=== PATIENT | female | born 1985 | race Caucasian/White ===

== ENCOUNTER 2021-10-05 11:18 | Outpatient (CLI) | payer OTHER, SELFPAY ==
[2021-10-05 23:20] LABS: Chlamydia DNA Amplified* NOT DETECTED (No Detected); GC DNA Amplified* NOT DETECTED (No Detected)
== END 2021-10-05 11:19 | disposition home or self-care (01) ==
PROVIDERS: Visit Provider Registered Nurse
DX: N39.0 Urinary tract infection, site not specified (principal); R10.2 Pelvic and perineal pain
CPT/HCPCS: 87086; 87491; 87591

== ENCOUNTER 2021-10-05 11:57 | Outpatient (CLI) | payer OTHER, SELFPAY ==
--- NOTE | 2021-10-05 13:00 | CRLHL7_ITS ---
For Patients: As a result of the Century Cures Act, medical imaging exams and procedure reports are released immediately into your electronic medical record. You may view this report before your referring provider. If you have questions, please contact your health care provider. INDICATION: SUPERVISION OF NORMAL 1ST COMPARISON: None. TECHNIQUE: Real-time sanon-scale imaging of the pelvis was performed. FINDINGS: Intrauterine gestational sac is present with a mean sac diameter 1.5 cm. pole is present measuring 2.4 millimeters corresponding to a 5 week 5 day gestation and sonographic due date of 06/02/22. No heart tones. Corpus luteal left ovarian cyst. Normal right ovary. IMPRESSION: 2.4 millimeter pole without heart tones. When the crown-rump length is less than 7 millimeters this may simply represent a very early gestation and follow-up ultrasound in 2 weeks is recommended for further evaluation. Dictated by Wilmer Weir MD @ 10/05/2021 3:06:17 PM (Electronically Signed)
== END 2021-10-05 11:58 | disposition home or self-care (01) ==
PROVIDERS: Visit Provider Registered Nurse
DX: Z34.91 Encounter for supervision of normal pregnancy, unspecified, first trimester (principal); Z3A.01 Less than 8 weeks gestation of pregnancy
CPT/HCPCS: 76817

== ENCOUNTER 2021-10-17 12:09 | Emergency (ER) | payer OTHER, SELFPAY ==
[2021-10-17 12:22] VITALS: BP 128/78; PULSE 89; RESP 18; TEMP 36.7; O2SAT 97; BMI 25.8
--- NOTE | 2021-10-17 12:55 | ED_ITS ---
HPI - General Adult General Time Seen by Provider: 12:55 Date Seen: 10/17/21 Chief complaint: Nausea/Vomiting Stated complaint: 7 wks /vomiting/nausea Time Seen by Provider: 10/17/21 12:22 Source: patient and RN notes reviewed Mode of arrival: ambulatory Limitations: no limitations History of Present Illness HPI narrative: Patient is a 35-year-old female current [place] about 7 weeks with her 1st experienced seen nausea vomiting about 4:00 a.m. this morning. She awoke early this morning and did not feel well. She thought maybe she need ed a cracker. Soon issue put the cracker in her mouth she started vomiting. It was more bilious contents. She has no abdominal pain with it. She cannot eat or drink anything however. She did attend a [employer] last night and had some fruit and a taco. She felt fine until early this morning. She is not aware anybody else was ill. She has had no fevers but today does feel chilled. Denies any urinary symptoms. Some diarrhea yesterday per nurse's note, none today. No abnormal vaginal discharge or any vaginal bleeding. Again no pain associated with this. She has had some slight episodes of nausea that would resolve with eating earlier in this . She has not experienced anything of this nature yet during this . About 10 days ago she tested positive for COVID. Two days prior to testing in she had a headache and severe body aches. She then developed nasal congestion and some cough. All symptoms had resolved and then gone for about 4-5 days. She has never had any abdominal surgery. Onset (ago): hour(s) Related Data Home Medications Medication Instructions Recorded Confirmed calcium carbonate 600 mg calcium 600 mg PO QDAY 10/05/21 10/17/21 (1,500 mg) tablet (Calcium) docosahexaenoic acid 200 mg mg PO 10/05/21 10/05/21 capsule ( DHA) sertraline 100 mg tablet (Zoloft) 200 mg PO QDAY 10/05/21 10/17/21 Previous Rx's Medication Instructions Recorded nitrofurantoin 100 mg PO BID #10 caps 10/05/21 monohydrate/macrocrystals 100 mg capsule (Macrobid) cephalexin 500 mg capsule 500 mg PO TID #21 caps 10/17/21 ondansetron 4 mg disintegrating 4 mg PO Q6H PRN nausea and 10/17/21 tablet vomiting #30 tabs Allergies Allergy/AdvReac Type Severity Reaction Status Date / Time Penicillins Allergy Mild Rash Verified 10/17/21 12:21 Review of Systems Status of ROS: Reports: 10 or more systems reviewed and unremarkable except as noted in History and below [facility] Medical History (Updated 10/17/21 @ 15:15 by Lelia Ibrahim MD) No significant past medical history Surgical History (Updated 10/17/21 @ 12:41 by Lilo Gonzalez RN) No significant past surgical history Social History Smoking Status: Never smoker How often do you have a drink containing alcohol: never AUDIT-C Alcohol total score: 0 Non-prescribed substance use: denies use Exam Const: Vital Signs, click to edit/add: Vital Signs - 24 hr 10/17/21 12:22 Temperature 98.1 F Pulse Rate [Pulse Oximeter] 89 Respiratory Rate 18 Blood Pressure [Ri ght Upper Arm] 128/78 Pulse Oximetry 97 Oxygen Delivery Me thod Room Air Documenting provider has reviewed patient's vital signs: yes Common normals: no apparent distress, average body habitus, oriented x3, no limitations, healthy appearing and alert General appearance: cooperative, comfortable and well kempt HENMT: Common normals: normocephalic, head/scalp atraumatic, hearing grossly normal bilaterally, external ears normal, external nose normal, nasal mucous membranes and turbinates normal, moist oral mucous membranes, oropharynx normal and dentition normal Head and scalp: normocephalic and atraumatic Nose: external nose normal and nasal mucous membranes and turbinates normal External ear: external ears normal Eye: Common normals: PERRL, EOMs intact bilaterally, conjunctivae normal and no scleral icterus Conjunctiva: conjunctiva(e) normal Pupil: PERRL Neck & C-Spine: Common normals: full ROM, no lymphadenopathy, supple, no meningeal signs, no JVD and thyroid normal Thyroid: thyroid normal Resp: Common normals: normal respiratory effort, no retractions, no use of accessory muscles and clear to auscultation bilaterally Auscultation: clear to auscultation bilaterally Cardio: Common normals: no JVD, regular rate, regular rhythm, S1 normal heart sound, S2 normal heart sound, no gallops, no clicks, no murmurs and no rub Rate: regular rate Rhythm: regular rhythm Heart sounds: S1 normal and S2 normal GI: Common normals: Normal to inspection, nondistended, normoactive bowel sounds present, soft to palpation, non-tender, no hepatosplenomegaly, no masses and no bruits Palpation: soft and no hepatosplenomegaly Neuro: Common normals: oriented x3 Sensorium/orientation: alert Meningeal signs: no meningeal signs Psych: Appearance: well kempt Course Course Hospital Course: We are going to have an IV established, give her a L of fluids and 4 mg of IV Zofran for symptom control. Will get appropriate labs including urinalysis. Have discussed with patient that this could be a resurgence of late cycle of COV ID, could be morning sickness with , gastroenteritis. I am reassured that her abdomen is nontender and that she is having no vaginal symptoms. We will obtain our labs, CRC response to IV fluids and Zofran and guide therapy accordingly. She is currently stable. Reevaluation(s) Reevaluation #1: Patient does reportedly feel better. Have reviewed with her that there was bacteria in the urine and we will culture this. In I would recommend treating this until we await culture results. Will also send her with a prescription for Zofran so that she can tolerate orals at least. She reports that she has a followup with a Ob for her initial appointment next week which she should definitely keep. Time: 15:11 Vital Signs Vital signs: Initial Vital Signs Temperature 98.1 F 10/17/21 12:22 Temperature Source Temporal Artery Scan 10/17/21 12:22 Pulse Rate 89 10/17/21 12:22 Pulse Rhythm 10/17/21 12:22 Respiratory Rate 18 10/17/21 12:22 Blood Pressure 128/78 10/17/21 12:22 Blood Pressure Mean 94 10/17/21 12:22 Blood Pressure Position Supine 10/17/21 12:22 Pulse Oximetry 97 10/17/21 12:22 Oxygen Delivery Method 10/17/21 12:22 Vital Signs Temperature 98.1 F 10/17/21 12:22 Pulse Rate 89 10/17/21 12:22 Respiratory Rate 18 10/17/21 12:22 Blood Pressure 128/78 10/17/21 12:22 Pulse Oximetry 97 10/17/21 12:22 Oxygen Delivery Method 10/17/21 12:22 Temperature 98.1 F 10/17/21 12:22 Pulse Rate 89 10/17/21 12:22 Respiratory Rate 18 10/17/21 12:22 Blood Pressure 128/78 10/17/21 12:22 Pulse Oximetry 97 10/17/21 12:22 Oxygen Delivery Method 10/17/21 12:22 Medical Decision Making Lab Data Lab results reviewed: Yes I reviewed the patient's lab results Labs: Lab Results 10/17/21 10/17/21 10/17/21 Range/Units 13:14 13:40 13:40 WBC 11.78 H (4.50-11.00) K/uL RBC 4.75 (4.00-5.20) m/uL Hgb 14.0 (12.0-16.0) gm/dL Hct 40.9 (33.0-51.0) % MCV 86 (80-100) fL MCH 30 (26-34) pg MCHC 34 (32-36) gm/dL RDW Coeff of Valeria 12.2 (11.5-15.5) % Plt Count 212 (140-440) K/uL Neut % (Auto) 86.4 H (42.0-72.0) % Lymph % (Auto) 8.4 L (20-44) % [place] % (Auto) 4.2 (0.0-11.0) % Eos % (Auto) 0.3 (0.0-7.0) % Baso % (Auto) 0.1 (0.0-3.0) % Neut # (Auto) 10.20 H (1.7-7.0) K/uL Lymph # (Auto) 1.00 (0.90-2.90) K/uL [place] # (Auto) 0.50 (0.00-0.90) K/UL Eos # (Auto) 0.00 (0.00-0.50) K/uL Baso # (Auto) 0.00 (0.00-0.30) K/uL Abs Immat Gran (auto) 0.07 (0.00-0.30) K/uL Sodium 133 L (135-149) mmol/L Potassium 4.0 (3.6-5.1) mmol/L Chloride 106 (96-114) mmol/L Carbon Dioxide 21 (20-32) mmol/L BUN 8 (5-24) mg/dL Creatinine 0.4 L (0.5-1.5) mg/dL Estimated Creat Clear 203.20 Estimated GFR 131 ml/min Glucose 96 (60-115) mg/dL Lactate (0.5-1.9) mmol/L Calcium 9.2 (8.4-10.6) mg/dL Total Bilirubin 0.5 (0.1-1.5) mg/dL AST 33 (12-35) U/L ALT 54 H (4-35) U/L Alkaline Phosphatase 82 (40-150) U/L C-Reactive Protein < 0.5 L (0.5-1.0) mg/dL Total Protein 7.2 (6.0-8.3) g/dL Albumin 4.1 (3.3-5.0) g/dL Urine Color Yellow (Yellow) Urine Appearance Slightly Cloudy A (Clear) Urine pH 6.0 (5.0-8.5) Ur Specific [place] 1.025 (1.000-1.030) Urine Protein Negative (Negative) Urine Glucose (UA) Negative (Negative) Urine Ketones Negative (Negative) Urine Blood Trace-intact A (Negative) Urine Nitrite Negative (Negative) Urine Bilirubin Negative (Negative) Urine Urobilinogen 0.2 (0.2-1.0) Ur Leukocyte Esterase Negative (Negative) Urine RBC 2-5 A (0-2) Urine WBC 2-5 (0-5) Ur Squamous Epith Cells None (None-Few) Urine Bacteria Moderate A (None) 10/17/21 Range/Units 13:40 WBC (4.50-11.00) K/uL RBC (4.00-5.20) m/uL Hgb (12.0-16.0) gm/dL Hct (33.0-51.0) % MCV (80-100) fL MCH (26-34) pg MCHC (32-36) gm/dL RDW Coeff of Valeria (11.5-15.5) % Plt Count (140-440) K/uL Neut % (Auto) (42.0-72.0) % Lymph % (Auto) (20-44) % [place] % (Auto) (0.0-11.0) % Eos % (Auto) (0.0-7.0) % Baso % (Auto) (0.0-3.0) % Neut # (Auto) (1.7-7.0) K/uL Lymph # (Auto) (0.90-2.90) K/uL [place] # (Auto) (0.00-0.90) K/UL Eos # (Auto) (0.00-0.50) K/uL Baso # (Auto) (0.00-0.30) K/uL Abs Immat Gran (auto) (0.00-0.30) K/uL Sodium (135-149) mmol/L Potassium (3.6-5.1) mmol/L Chloride (96-114) mmol/L Carbon Dioxide (20-32) mmol/L BUN (5-24) mg/dL Creatinine (0.5-1.5) mg/dL Estimated Creat Clear Estimated GFR ml/min Glucose (60-115) mg/dL Lactate 0.9 (0.5-1.9) mmol/L Calcium (8.4-10.6) mg/dL Total Bilirubin (0.1-1.5) mg/dL AST (12-35) U/L ALT (4-35) U/L Alkaline Phosphatase (40-150) U/L C-Reactive Protein (0.5-1.0) mg/dL Total Protein (6.0-8.3) g/dL Albumin (3.3-5.0) g/dL Urine Color (Yellow) Urine Appearance (Clear) Urine pH (5.0-8.5) Ur Specific [place] (1.000-1.030) Urine Protein (Negative) Urine Glucose (UA) (Negative) Urine Ketones (Negative) Urine Blood (Negative) Urine Nitrite (Negative) Urine Bilirubin (Negative) Urine Urobilinogen (0.2-1.0) Ur Leukocyte Esterase (Negative) Urine RBC (0-2) Urine WBC (0-5) Ur Squamous Epith Cells (None-Few) Urine Bacteria (None) Critical Care Time Critical Care Time Critical Care Time: No Discharge Plan Discharge Clinical Impression: Bacteriuria, Nausea & vomiting Qualifiers: Vomiting type: unspecified Qualified Code(s): R11.2 - Nausea with vomiting, unspecified Condition: Stable Instructions: Acute Nausea and Vomiting (ED), Urinary Tract Infection in (ED), at 7 to 10 Weeks (ED) Additional Instructions: Can use Zofran per prescription to help minimize nausea and vomiting to allow for oral intake. It remains unclear at this time if urinary tract infection, with morning sickness or other possible etiology use like a gastroenteritis might be at play here. Time will help sort this out. I do recommend initiating Keflex to treat for the bacteriuria found on the urinalysis until we await the urine culture. Please keep your scheduled appointment next week for your initial OB. Otherwise, if you are worsening with ongoing nausea vomiting, unable to keep orals down despite use of Zofran, develop a fever, develops abdominal pain, do need to seek re-evaluation. Activity Level: Activity as Tolerated Discharge Diet: Regular Prescriptions: New ondansetron 4 mg tablet,disintegrating 4 mg PO Q6H PRN (Reason: nausea and vomiting) Qty: 30 0RF cephalexin 500 mg capsule 500 mg PO TID Qty: 21 0RF No Action DHA 200 mg capsule PO sertraline [Zoloft] 100 mg tablet 200 mg PO QDAY calcium carbonate [Calcium 600] 600 mg calcium (1,500 mg) tablet 600 mg PO QDAY nitrofurantoin monohyd/m-cryst [Macrobid] 100 mg capsule 100 mg PO BID Qty: 10 0RF Rx Instructions: must administer with a meal/food Follow Up/Referrals: Provider,Not a Local [Primary Care Provider] - Stand Alone Forms: [employer] Info Instructions
[2021-10-17] MEDS: ONDANSETRON 2 MG/ML inj 4 MG IVP (13:39)
[2021-10-17] MEDS: 0.9 % SODIUM CHLORIDE 500 ML 500 ML 1000 ML IV ×2 (13:40→14:06)
[2021-10-17 13:50] LABS: Lactate* 0.9 mmol/L (0.5-1.9)
[2021-10-17 13:51] LABS: Basophils Percent Auto 0.1 % (0.0-3.0); Eosinophils Percent Auto 0.3 % (0.0-7.0); Hematocrit 40.9 % (33.0-51.0); Immature Granulocytes Abs Auto 0.07 K/uL (0.00-0.30); Lymphocytes Percent Auto 8.4 % (20-44); Mean Corpuscular HGB Conc 34 gm/dL (32-36); Mean Corpuscular Hemoglobin 30 pg (26-34); Mean Corpuscular Volume 86 fL (80-100); Monocytes Percent Auto 4.2 % (0.0-11.0); Neutrophils Percent Auto 86.4 % (42.0-72.0); Platelet Count* 212 K/uL (140-440); RDW Coefficient of Variation % 12.2 % (11.5-15.5); Red Blood Count 4.75 m/uL (4.00-5.20); White Blood Count* 11.78 K/uL (4.50-11.00)
[2021-10-17 14:17] LABS: Albumin* 4.1 g/dL (3.3-5.0); Chloride* 106 mmol/L (96-114)
[2021-10-17 14:18] LABS: Sodium* 133 mmol/L (135-149)
[2021-10-17 14:20] LABS: Bilirubin Total* 0.5 mg/dL (0.1-1.5); Creatinine* 0.4 mg/dL (0.5-1.5); Estimated Glomerular Filt Rate 131 ml/min
[2021-10-17 14:21] LABS: Alanine Aminotransferase* 54 U/L (4-35); Alkaline Phosphatase* 82 U/L (40-150); Aspartate Amino Transferase* 33 U/L (12-35); Blood Urea Nitrogen* 8 mg/dL (5-24); Calcium* 9.2 mg/dL (8.4-10.6); Carbon Dioxide* 21 mmol/L (20-32); Glucose* 96 mg/dL (60-115); Total Protein* 7.2 g/dL (6.0-8.3)
[2021-10-17 14:28] LABS: C Reactive Protein* < 0.5 mg/dL (0.5-1.0)
[2021-10-17 14:30] LABS: Slide Review Reflex No
[2021-10-17 14:45] LABS: Appearance Urine Slightly Cloudy (Clear); Bilirubin Urine Negative (Negative); Blood Urine Trace-intact (Negative); Color Urine Yellow (Yellow); Glucose Urine Negative (Negative); Ketones Urine Negative (Negative); Leukocyte Esterase Urine Negative (Negative); Nitrite Urine Negative (Negative); Protein Urine Negative (Negative); Specific Gravity Urine 1.025 (1.000-1.030); Urobilinogen Urine 0.2 (0.2-1.0)
[2021-10-17 14:54] LABS: Bacteria Urine Moderate
== END 2021-10-17 15:26 | disposition home or self-care (01) ==
PROVIDERS: Emergency Provider Family Medicine
DX: R82.71 Bacteriuria (principal); Z3A.01 Less than 8 weeks gestation of pregnancy
CPT/HCPCS: 36415; 80053; 81001; 83605; 85025; 86140; 87086; 96374; 99284; J2405; J7120

== ENCOUNTER 2021-10-23 12:00 | Outpatient (CLI) | payer OTHER, SELFPAY ==
--- NOTE | 2021-10-23 12:49 | CRLHL7_ITS ---
For Patients: As a result of the Century Cures Act, medical imaging exams and procedure reports are released immediately into your electronic medical record. You may view this report before your referring provider. If you have questions, please contact your health care provider. INDICATION: First trimester scan, establish dates. COMPARISON: 10/05/2021 TECHNIQUE: Real-time sanon-scale imaging of the pelvis was performed. FINDINGS: Sonographic imaging demonstrates a single living intrauterine gestation. The embryo demonstrates a regular cardiac rate measuring 171 beats per minute. The embryo`s crown-rump length measurement of 1.9 cm corresponds to a gestational age of 8 weeks 3 days with a sonographic due date of 06/01/2022. There is a normal-appearing yolk sac. There are no gross abnormalities noted within the embryo at this early state of development. The gestational sac has a normal appearance. There is no evidence of a perigestational hemorrhage. The amount of fluid within the sac appears appropriate for gestational age. The cervix is closed. The myometrium appears normal. The ovaries are of normal size. Corpus luteal cyst left ovary. There are no suspicious fluid collections noted in the cul-de-sac. IMPRESSION: Normal first trimester OB ultrasound exam. Gestational age calculated at 8 weeks 3 days with a sonographic due date of 06/01/2022. Dictated by Wilmer Weir MD @ 10/24/2021 8:48:42 AM (Electronically Signed)
== END 2021-10-23 12:01 | disposition home or self-care (01) ==
LOC: US 10-26 11:18
PROVIDERS: Visit Provider Registered Nurse
DX: Z34.91 Encounter for supervision of normal pregnancy, unspecified, first trimester (principal); Z3A.08 8 weeks gestation of pregnancy
CPT/HCPCS: 76817

== ENCOUNTER 2021-10-23 14:04 | Outpatient (CLI) | payer OTHER, SELFPAY ==
[2021-10-23 17:12] LABS: Hepatitis B Surface Antigen* Negative (Negative)
[2021-10-23 17:22] LABS: HIV 1/2/P24 Combo Screen* Negative (Negative)
[2021-10-23 17:30] LABS: Hepatitis C Virus Antibody* Negative (Negative)
[2021-10-25 18:20] LABS: Rubella Antibody IgG 17.9 IU/mL
[2021-10-26 00:37] LABS: Rapid Plasma Reagin (RPR) Non Reactive (Non Reactive)
== END 2021-10-23 14:05 | disposition home or self-care (01) ==
LOC: NFLDREF 14:09
PROVIDERS: Visit Provider Registered Nurse
DX: Z34.91 Encounter for supervision of normal pregnancy, unspecified, first trimester (principal)
CPT/HCPCS: 86592; 86703; 86762; 86803; 86850; 86900; 86901; 87086; 87340

== ENCOUNTER 2021-11-20 13:20 | Outpatient (CLI) | payer OTHER, SELFPAY ==
[2021-11-20 16:08] LABS: Albumin* 3.7 g/dL (3.3-5.0)
[2021-11-20 16:11] LABS: Aspartate Amino Transferase* 26 U/L (12-35); Bilirubin Direct* 0.2 mg/dL (0.0-0.5); Bilirubin Total* 0.2 mg/dL (0.1-1.5); Total Protein* 6.5 g/dL (6.0-8.3)
[2021-11-20 16:12] LABS: Alanine Aminotransferase* 26 U/L (4-35); Alkaline Phosphatase* 81 U/L (40-150)
== END 2021-11-20 13:21 | disposition home or self-care (01) ==
LOC: NFLDREF 13:22
PROVIDERS: Visit Provider Obstetrics & Gynecology
DX: O09.511 Supervision of elderly primigravida, first trimester (principal); R74.01 Elevation of levels of liver transaminase levels
CPT/HCPCS: 80076

== ENCOUNTER 2022-01-23 12:23 | Outpatient (CLI) | payer OTHER, SELFPAY | END 2022-01-23 12:24 | disposition home or self-care (01) | PROVIDERS: Visit Provider Pediatrics Neonatal-Perinatal Medicine | DX: O09.522 Supervision of elderly multigravida, second trimester (principal); Z3A.21 21 weeks gestation of pregnancy | CPT/HCPCS: 76811 ==

== ENCOUNTER 2022-03-19 15:17 | Outpatient (CLI) | payer OTHER, SELFPAY ==
[2022-03-21 16:10] LABS: Rapid Plasma Reagin (RPR) Non Reactive (Non Reactive)
== END 2022-03-19 15:18 | disposition home or self-care (01) ==
PROVIDERS: Visit Provider Obstetrics & Gynecology
DX: Z34.93 Encounter for supervision of normal pregnancy, unspecified, third trimester (principal); Z3A.29 29 weeks gestation of pregnancy
CPT/HCPCS: 86592

== ENCOUNTER 2022-04-02 12:58 | Outpatient (CLI) | payer OTHER, SELFPAY ==
--- NOTE | 2022-04-02 13:00 | CRLHL7_ITS ---
For Patients: As a result of the Century Cures Act, medical imaging exams and procedure reports are released immediately into your electronic medical record. You may view this report before your referring provider. If you have questions, please contact your health care provider. INDICATION: Third trimester scan, evaluate growth. COVID in COMPARISON: 10/23/2021 TECHNIQUE: Real time sanon scale imaging of the fetus was performed. FINDINGS: Sonographic imaging demonstrates a single living intrauterine gestation. Fetus demonstrates a regular cardiac rate of 141 beats per minute. Fetus has a vertex position. The placenta lies posteriorly. Amniotic fluid volume appears normal and there is a single deepest vertical pocket: 3.5 cm. The estimated weight is 1800gm which lies at the 54th %. BPD 20th percentile. HC 22nd percentile. AC 78th percentile. FL 30th percentile. The HC/AC ratio measures 1.02 range (0.96-1.16). IMPRESSION: Sonographic gestational age 31 weeks 2 days and sonographic due date 06/02/2022. Good correlation with dates. Estimated weight 54th percentile. Abdominal circumference 78th percentile. Dictated by Wilmer Weir MD @ 04/03/2022 12:55:24 PM (Electronically Signed)
== END 2022-04-02 12:59 | disposition home or self-care (01) ==
LOC: US 12:59
PROVIDERS: PCP Obstetrics & Gynecology; Visit Provider Obstetrics & Gynecology
DX: O98.513 Other viral diseases complicating pregnancy, third trimester (principal); U07.1 COVID-19; Z3A.31 31 weeks gestation of pregnancy
CPT/HCPCS: 76816; 87086

== ENCOUNTER 2022-04-16 12:56 | Outpatient (CLI) | payer OTHER, SELFPAY ==
[2022-04-16 17:54] LABS: Alanine Aminotransferase* 19 U/L (4-35); Aspartate Amino Transferase* 32 U/L (12-35); Blood Urea Nitrogen* 13 mg/dL (5-24); Estimated Glomerular Filt Rate 74 ml/min
[2022-04-16 17:55] LABS: Total Protein Urine 15 mg/dL
[2022-04-16 17:57] LABS: Creatinine Urine 59.8 mg/dL
== END 2022-04-16 12:57 | disposition home or self-care (01) ==
PROVIDERS: PCP Obstetrics & Gynecology; Visit Provider Obstetrics & Gynecology
DX: O16.3 Unspecified maternal hypertension, third trimester (principal); Z3A.33 33 weeks gestation of pregnancy
CPT/HCPCS: 82565; 82570; 84156; 84450; 84460; 84520

== ENCOUNTER 2022-04-19 07:18 | Outpatient (CLI) | payer OTHER, SELFPAY ==
--- NOTE | 2022-04-19 07:15 | CRLHL7_ITS ---
For Patients: As a result of the Century Cures Act, medical imaging exams and procedure reports are released immediately into your electronic medical record. You may view this report before your referring provider. If you have questions, please contact your health care provider. INDICATION: GESTATIONAL HYPERTENSION COMPARISON: 04/02/2022 TECHNIQUE: Real time sanon scale imaging of the fetus was performed. Without non-stress testing. FINDINGS: Sonographic imaging demonstrates a single living intrauterine gestation. Fetus demonstrates a regular cardiac rate of 171 beats per minute. Fetus has a vertex position. The amniotic fluid volume appears normal and there is a single deepest pocket measurement of 5.4 cm. The fetus was active and demonstrated normal breathing movements. There was normal flexion and extension of the trunk and extremities. IMPRESSION: Normal biophysical profile score of 8 out of 8. Dictated by Wilmer Weir MD @ 04/22/2022 10:22:36 AM (Electronically Signed)
== END 2022-04-19 07:19 | disposition home or self-care (01) ==
LOC: US 07:19
PROVIDERS: PCP Obstetrics & Gynecology; Visit Provider Obstetrics & Gynecology
DX: O13.9 Gestational [pregnancy-induced] hypertension without significant proteinuria, unspecified trimester (principal)
CPT/HCPCS: 76819

== ENCOUNTER 2022-04-23 10:16 | Outpatient (CLI) | payer OTHER, SELFPAY ==
[2022-04-23 11:20] LABS: Blood Urea Nitrogen* 12 mg/dL (5-24)
[2022-04-23 11:21] LABS: Alanine Aminotransferase* 19 U/L (4-35); Aspartate Amino Transferase* 25 U/L (12-35); Creatinine* 0.7 mg/dL (0.5-1.5); Estimated Glomerular Filt Rate 114 ml/min
[2022-04-23 11:52] LABS: Creatinine Urine 63.6 mg/dL; Total Protein Urine 21 mg/dL
[2022-04-24 13:52] LABS: Strep B DNA Probe NEGATIVE (Negative)
[2022-04-25 07:48] LABS: Strep B Pen/Amox Allergy Yes
== END 2022-04-23 10:17 | disposition home or self-care (01) ==
PROVIDERS: PCP Obstetrics & Gynecology; Visit Provider Obstetrics & Gynecology
DX: O13.3 Gestational [pregnancy-induced] hypertension without significant proteinuria, third trimester (principal); Z3A.34 34 weeks gestation of pregnancy
CPT/HCPCS: 82565; 82570; 84156; 84450; 84460; 84520; 87081; 87653

== ENCOUNTER 2022-04-26 14:02 | Outpatient (CLI) | payer OTHER, SELFPAY ==
--- NOTE | 2022-04-26 14:00 | CRLHL7_ITS ---
For Patients: As a result of the Century Cures Act, medical imaging exams and procedure reports are released immediately into your electronic medical record. You may view this report before your referring provider. If you have questions, please contact your health care provider. INDICATION: Gestational hypertension. COMPARISON: OB ultrasound 04/19/2022. TECHNIQUE: Real time sanon scale imaging of the fetus was performed without non-stress testing. FINDINGS: Sonographic imaging demonstrates a single living intrauterine gestation. The fetus demonstrates a regular cardiac rate of 150 beats per minute. The fetus has a cephalic orientation. The placenta lies posteriorly. Amniotic fluid volume appears normal with single deepest pocket measuring 5.3 cm (2/2). The fetus was active (2/2). There was normal flexion and extension of the trunk and extremities (2/2). The fetus demonstrated normal breathing movements (2/2). IMPRESSION: Normal biophysical profile score 8 out of 8. Dictated by Jessi Peña MD @ 04/27/2022 1:06:56 AM (Electronically Signed)
== END 2022-04-26 14:03 | disposition home or self-care (01) ==
LOC: US 14:03
PROVIDERS: PCP Obstetrics & Gynecology; Visit Provider Obstetrics & Gynecology
DX: O13.9 Gestational [pregnancy-induced] hypertension without significant proteinuria, unspecified trimester (principal)
CPT/HCPCS: 76819

== ENCOUNTER 2022-04-30 14:04 | Outpatient (CLI) | payer OTHER, SELFPAY ==
[2022-04-30 17:35] LABS: Creatinine* 0.7 mg/dL (0.5-1.5); Estimated Glomerular Filt Rate 114 ml/min
[2022-04-30 17:36] LABS: Alanine Aminotransferase* 18 U/L (4-35); Aspartate Amino Transferase* 24 U/L (12-35); Blood Urea Nitrogen* 14 mg/dL (5-24)
== END 2022-04-30 14:05 | disposition home or self-care (01) ==
PROVIDERS: PCP Obstetrics & Gynecology; Visit Provider Obstetrics & Gynecology
DX: O14.93 Unspecified pre-eclampsia, third trimester (principal); O09.513 Supervision of elderly primigravida, third trimester; Z3A.35 35 weeks gestation of pregnancy
CPT/HCPCS: 82565; 84450; 84460; 84520

== ENCOUNTER 2022-05-03 10:12 | Outpatient (CLI) | payer OTHER, SELFPAY ==
--- NOTE | 2022-05-03 10:15 | CRLHL7_ITS ---
For Patients: As a result of the Century Cures Act, medical imaging exams and procedure reports are released immediately into your electronic medical record. You may view this report before your referring provider. If you have questions, please contact your health care provider. INDICATION: GESTATIONAL HYPERTENSION TECHNIQUE: Real time sanon scale imaging of the fetus was performed. COMPARISON: 04/26/2022 FINDINGS: Sonographic imaging demonstrates a single living intrauterine gestation. Fetus demonstrates a regular cardiac rate of 144 beats per minute. Fetus has a vertex position. The placenta lies posteriorly. Amniotic fluid volume appears normal and there is a single deepest pocket of 4.4 cm. The estimated weight is 2800gm which lies at the 59th %. On the prior OB ultrasound dated 04/02/2022 the estimated weight was at the 54th percentile. BPD 29th percentile. HC 13 percent. AC 92nd percentile. FL 14th percentile. The fetus was active and demonstrated normal breathing movements. There was normal flexion and extension of the trunk and extremities. IMPRESSION: Normal biophysical profile score 8/8. Sonographic gestational age 35 weeks 3 days and sonographic due date 06/04/2022. Good correlation with dates. Normal interval growth. Estimated weight 59th percentile. Abdominal circumference 92nd percentile. Dictated by Wilmer Weir MD @ 05/03/2022 10:57:11 AM (Electronically Signed)
== END 2022-05-03 10:13 | disposition home or self-care (01) ==
LOC: US 10:13
PROVIDERS: PCP Obstetrics & Gynecology; Visit Provider Obstetrics & Gynecology
DX: O13.3 Gestational [pregnancy-induced] hypertension without significant proteinuria, third trimester (principal); Z3A.35 35 weeks gestation of pregnancy
CPT/HCPCS: 76816; 76819

== ENCOUNTER 2022-05-07 09:01 | Outpatient (CLI) | payer OTHER, SELFPAY ==
[2022-05-07 10:54] LABS: Alanine Aminotransferase* 16 U/L (4-35); Aspartate Amino Transferase* 23 U/L (12-35); Blood Urea Nitrogen* 12 mg/dL (5-24); Creatinine* 0.7 mg/dL (0.5-1.5); Estimated Glomerular Filt Rate 114 ml/min
== END 2022-05-07 09:02 | disposition home or self-care (01) ==
PROVIDERS: PCP Obstetrics & Gynecology; Visit Provider Obstetrics & Gynecology
DX: O14.90 Unspecified pre-eclampsia, unspecified trimester (principal)
CPT/HCPCS: 82565; 84450; 84460; 84520

== ENCOUNTER 2022-05-10 09:21 | Outpatient (CLI) | payer OTHER, SELFPAY ==
--- NOTE | 2022-05-10 09:15 | CRLHL7_ITS ---
For Patients: As a result of the Cures Act, medical imaging exams and procedure reports are released immediately into your electronic medical record. You may view this report before your referring provider. If you have questions, please contact your health care provider. OB ULTRASOUND CLINICAL HISTORY: Gestational hypertension. LMP: 08/27/2021. SHERRIE by LMP: 06/03/2022. GA: 36 w, 4 d. FINDINGS: Cervix: Not visualized. Positioning: Vertex. Amniotic Fluid: 6.5 cm SDP (N: Increase 2 x 1 cm) BIOPHYSICAL PROFILE 8 ??? Total Score 2 ??? Gross Body Movements 2- Tone 2- Respiratory Activity 2- Amniotic Fluid SDP (N: Increase 2 x 1 cm) Placenta: TA. Placenta Position: Posterior. Right wall. Heart Rate: 134 bpm. IMPRESSION: Biophysical profile score 8/8. Consuelo Duffy M.D. Diagnostic/Breast Radiologist [email or web address] CANDIDA/[email or web address] [email or web address]/Dictated by: Consuelo Duffy MD @ 05/10/2022 10:39:00 AM (Electronically Signed)
== END 2022-05-10 09:22 | disposition home or self-care (01) ==
LOC: US 09:22
PROVIDERS: PCP Obstetrics & Gynecology; Visit Provider Obstetrics & Gynecology
DX: O13.9 Gestational [pregnancy-induced] hypertension without significant proteinuria, unspecified trimester (principal)
CPT/HCPCS: 76819

== ENCOUNTER 2022-05-12 16:10 | Inpatient (IN) | payer OTHER, SELFPAY ==
[2022-05-12 16:25] VITALS: BMI 34.4
[2022-05-12 16:33] VITALS: BP 158/102; PULSE 96; TEMP 36.8
[2022-05-12 16:34] VITALS: PULSE 99; O2SAT 97
[2022-05-12 16:50] VITALS: BP 138/86; PULSE 90
[2022-05-12 17:24] LABS: Hematocrit 39.1 % (33.0-51.0); Hemoglobin* 13.1 gm/dL (12.0-16.0); Mean Corpuscular HGB Conc 34 gm/dL (32-36); Mean Corpuscular Hemoglobin 28 pg (26-34); Mean Corpuscular Volume 84 fL (80-100); Platelet Count* 205 K/uL (140-440); Red Blood Count 4.63 m/uL (4.00-5.20); White Blood Count* 9.06 K/uL (4.50-11.00)
[2022-05-12] MEDS: miSOPROStoL 25 MCG/0.25 TABLET VAGINAL ×3 (17:31→23:27)
[2022-05-12 17:34] LABS: Slide Review Reflex No
[2022-05-12 17:34] LABS: SARS PCR* Negative SARS-CoV-2 (Negative)
[2022-05-12 17:40] LABS: Aspartate Amino Transferase* 25 U/L (12-35); Creatinine* 0.8 mg/dL (0.5-1.5); Est. Creatinine Clearance* 100.62; Estimated Glomerular Filt Rate 97 ml/min
[2022-05-12 17:41] LABS: Alanine Aminotransferase* 19 U/L (4-35); Blood Urea Nitrogen* 19 mg/dL (5-24); Magnesium* 2.1 mg/dL (1.5-2.6)
--- NOTE | 2022-05-12 17:53 | P.LDBA_ITS ---
Subjective History of Present Illness Time Seen by Provider: 17:53 Date Seen: 05/12/22 Narrative: Janice is a 36yo is being admitted to Labor and Delivery for cervical ripening followed by induction of labor due to preeclampsia without severe features. Her full history and physical was completed by Dr. Tonya Staples on 04/23/2022. Please see this for details. She denies headaches, visual changes, N&V, mid-epigastric/RUQ pain. She has mild BLE swelling in her feet. OB - Problem Based A/P Additional Plan (1) Preeclampsia: Status: Acute Plan 1. Cervical ripening with vaginal cytotec 25mcg PV Q3hr: 5 doses maximum. 2. Pitocin per labor protocol in the Am 3. Serum preeclampsia labs ordered now, repeat in the AM 4. GBS negative. 5. Dr. Tonya Staples with assumed care on 05/13/22.2 6. Blood type O+ 7. Preeclampsia labs on admission: * Hgb 13.1, plts 205, INR 0.9, fibrinogen 508 (H), BUN 19, Creat 0.8, AST 25, ALT 19. OB Exam Physical Exam Vital signs: Pulse BP Pulse Ox 90 138/86 97 05/12/22 16:50 05/12/22 16:50 05/12/22 16:34 Narrative: General: Pleasant, , well-groomed woman in no acute distress. Vital signs: see above. Chest: CTA bilaterally Heart: RRR without gallop, rub or murmur. Abdomen: Gravid, NT/ND, normal bowel sounds throughout EFM: Baseline: 130's, (+) accels, (-) decels, moderate variability, reactive. Ca tegory 1. TOCO: rare contractions. SVE (per nursing): 1/70%/-3/posterior/soft. salazar: 5. Extremities: No pain. Mild BLE in the feet. Neurologic: Normal DTR's at bilateral patella: 2+/2, equal, no clonus
[2022-05-12 18:01] LABS: Fibrinogen* 508 mg/dL (200-450); INR 0.95 (0.91-1.10); Prothrombin Time 13.3 Seconds
[2022-05-12 20:21] VITALS: BP 141/87; PULSE 77; RESP 16; TEMP 36.7
[2022-05-12 20:22] VITALS: BP 141/90; PULSE 77
[2022-05-12 23:15] VITALS: BP 144/84; PULSE 77; RESP 16; TEMP 36.7
[2022-05-12] MEDS: MORPHINE 10 MG/ML inj IM (23:20)
[2022-05-12] MEDS: hydrOXYzine pamoate 25 MG CAPSULE 100 MG PO (23:21)
[2022-05-13] VITALS (67 sets, daily range): BP systolic 121–162; BP diastolic 73–101; PULSE 76–120; RESP 16–20; TEMP 36.4–37.3; O2SAT 93–100
[2022-05-13 06:19] LABS: Hematocrit 40.8 % (33.0-51.0); Hemoglobin* 13.7 gm/dL (12.0-16.0); Mean Corpuscular HGB Conc 34 gm/dL (32-36); Mean Corpuscular Hemoglobin 28 pg (26-34); Mean Corpuscular Volume 85 fL (80-100); Platelet Count* 199 K/uL (140-440); Red Blood Count 4.82 m/uL (4.00-5.20); White Blood Count* 13.07 K/uL (4.50-11.00)
[2022-05-13 06:24] LABS: Slide Review Reflex Yes
[2022-05-13 06:35] LABS: Aspartate Amino Transferase* 25 U/L (12-35); Creatinine* 0.8 mg/dL (0.5-1.5); Est. Creatinine Clearance* 100.62; Estimated Glomerular Filt Rate 97 ml/min; Magnesium* 1.9 mg/dL (1.5-2.6)
[2022-05-13 06:36] LABS: Alanine Aminotransferase* 19 U/L (4-35); Blood Urea Nitrogen* 18 mg/dL (5-24)
[2022-05-13 06:51] LABS: INR 0.92 (0.91-1.10); Prothrombin Time 12.9 Seconds
[2022-05-13 06:53] LABS: Fibrinogen* 527 mg/dL (200-450)
[2022-05-13] MEDS: miSOPROStoL 25 MCG/0.25 TABLET VAGINAL (07:34)
[2022-05-13] MEDS: LACTATED RINGERS 1000 ML 1,000 ML 125 ML IV (11:59)
[2022-05-13] MEDS: OXYTOCIN 30 unit/500 ML in NS 30 UNIT/500 ML BAG IVPB (12:01)
--- NOTE | 2022-05-13 14:37 | P.OBPN_ITS ---
Subjective Time Seen by Provider: 14:30 Date Seen: 05/13/22 Narrative: Janice has had 4 doses of vaginal misoprostol for cervical ripening, the last around 7 AM. She then had pitocin for IOL beginning late this AM. She is feeling contractions, but they are not registering on toco. Objective Vital Signs: Last Vital Signs Temp 98.8 F 05/13/22 12:10 Pulse 81 05/13/22 14:11 Resp 16 05/13/22 12:10 BP 126/76 05/13/22 14:11 Pulse Ox 96 05/13/22 13:55 Pelvic Exam Dilation (cm): 3 Effacement (%): 90 Station: 0 Comments: Anterior, soft. AROM for clear fluid Assessment Assessment: early labor Amniotic Membrane Status: AROM Status: Category l Heart Rate Baseline: 150 Digital [employer] Manager Variability: Moderate (6-25) Monitor Accelerations: Absent Monitor Decelerations: None Labor Progress: Favorable cervix after vaginal misoprostol for cervical ripening. AROM At 2:30 PM. Maternal Status: Preeclampsia without severe features. BPs intermittently elevated, but not to severe range. Plan Plan: Continue pitocin augmentation. Continuous monitoring.
[2022-05-13] MEDS: LACTATED RINGERS 1000 ML 1,000 ML 122 ML IV (15:35)
[2022-05-13 15:38] LABS: Slide Review Acceptable Review (Acceptable)
[2022-05-13] MEDS: ROPIVACAINE 0.2% 100 ml 100 ML 12 MG EPIDURAL (15:52)
[2022-05-13] MEDS: LIDOCAINE 2% (PF) 5 ML VIAL EPIDURAL (15:54)
--- NOTE | 2022-05-13 15:57 | PM.ANBPRC ---
[facility] Medical History (Updated 04/23/22 @ 14:33 by Tonya Staples MD) History of recurrent ear infection Migraines Surgical History (Updated 04/23/22 @ 10:30 by Tonya Staples MD) H/O wisdom tooth extraction Family History (Updated 04/23/22 @ 10:31 by Tonya Staples MD) Mother Thyroid disease Sister Multiple sclerosis Father Carcinoma of biliary tract Social History (Updated 04/23/22 @ 10:35 by Tonya Staples MD) Narrative: Lives in [place] with . Works for [employer] from home. No tob / ETOH / ilicits Smoking Status: Never smoker How often do you have a drink containing alcohol: never AUDIT-C Alcohol total score: 0 Non-prescribed substance use: denies use Little interest or pleasure in doing things: not at all Feeling down, depressed, or hopeless: not at all Meds Home Medications and Allergies Home Medications Medication Instructions Recorded Confirmed Type calcium carbonate 600 mg calcium 600 mg PO QDAY 10/05/21 05/12/22 History (1,500 mg) tablet (Calcium) docosahexaenoic acid 200 mg mg PO 10/05/21 05/10/22 History capsule ( DHA) sertraline 100 mg tablet (Zoloft) 200 mg PO QDAY 10/05/21 05/12/22 History aspirin 81 mg capsule 81 mg PO QDAY 04/23/22 05/12/22 History Allergies Allergy/AdvReac Type Severity Reaction Status Date / Time Penicillins Allergy Mild Rash Verified 05/10/22 10:37 Results Labs Labs: Laboratory Results - last 24 hr 05/12/22 05/12/22 05/12/22 16:41 17:18 17:18 WBC 9.06 RBC 4.63 Hgb 13.1 Hct 39.1 MCV 84 MCH 28 MCHC 34 Plt Count 205 Diff Slide Review INR 0.95 Fibrinogen 508 H BUN Creatinine Estimated Creat Clear Estimated GFR Magnesium AST ALT SARS-CoV-2 (PCR) Negative SARS-CoV-2 05/12/22 05/12/22 05/13/22 17:18 17:18 06:05 WBC RBC Hgb Hct MCV MCH MCHC Plt Count Diff Slide Review INR Fibrinogen BUN 19 Creatinine 0.8 Estimated Creat Clear 100.62 Estimated GFR 97 Magnesium 2.1 1.9 AST 25 ALT 19 SARS-CoV-2 (PCR) 05/13/22 05/13/22 05/13/22 06:05 06:05 06:05 WBC 13.07 H RBC 4.82 Hgb 13.7 Hct 40.8 MCV 85 MCH 28 MCHC 34 Plt Count 199 Diff Slide Review Acceptable Review INR 0.92 Fibrinogen 527 H BUN 18 Creatinine 0.8 Estimated Creat Clear 100.62 Estimated GFR 97 Magnesium AST 25 ALT 19 SARS-CoV-2 (PCR) Vital Signs Vital Signs: Last Vital Signs Temp 98.8 F 05/13/22 12:10 Pulse 88 05/13/22 15:57 Resp 16 05/13/22 12:10 BP 131/83 05/13/22 15:57 Pulse Ox 98 05/13/22 15:53 Weight: 104.644 kg Height: 175.26 cm Anesthesia Procedures Epidural Insertion Patient Location: OB Start Time: 15:15 Stop Time: 16:00 Start Date: 05/13/22 Stop Date: 05/13/22 Reason for Block: primary anesthetic Patient Position: sitting Performed By: Kevon Dockery Preanesthetic Checklist: IV checked, risks and benefits discussed, surgical consent, monitors and equipment checked, pre-op evaluation, timeout performed and anesthesia consent Prep: chlorhexidine gluconate Monitoring: blood pressure monitoring, library monitor, continuous pulse oximetry and heart rate Approach: midline Vertebral Space: lumbar (1-5) Needle Type: Tuohy needle Injection Technique: continuous catheter (catheter) Needle gauge: 17 Needle Length (cm): 10 cm Needle Insertion Depth (cm): 6 Catheter Gauge: 19 Catheter Type: multi-orifice Catheter at skin depth (cm): 12 Test Dose Result: negative and lidocaine 1.5% with epinephrine 1 to 200,000 Events: other (1st attempt catheter kinked, pulled catheter tip intact. 2nd epidural placed without complication)
[2022-05-13 17:33] LABS: Basophils Absolute Auto 0.01 K/uL (0.00-0.30); Basophils Percent Auto 0.1 % (0.0-3.0); Eosinophils Absolute Auto 0.04 K/uL (0.00-0.50); Eosinophils Percent Auto 0.4 % (0.0-7.0); Hematocrit 41.1 % (33.0-51.0); Hemoglobin* 13.5 gm/dL (12.0-16.0); Immature Granulocytes Abs Auto 0.03 K/uL (0.00-0.30); Immature Granulocytes Pct Auto 0.3 %; Lymphocytes Percent Auto 12.4 % (20-44); Mean Corpuscular HGB Conc 33 gm/dL (32-36); Mean Corpuscular Hemoglobin 28 pg (26-34); Mean Corpuscular Volume 85 fL (80-100); Monocytes Percent Auto 8.6 % (0.0-11.0); Neutrophils Percent Auto 78.2 % (42.0-72.0); Platelet Count* 176 K/uL (140-440); RDW Coefficient of Variation % 13.1 % (11.5-15.5); Red Blood Count 4.82 m/uL (4.00-5.20); White Blood Count* 9.82 K/uL (4.50-11.00)
[2022-05-13 17:42] LABS: Slide Review Reflex No
[2022-05-13 18:42] LABS: Fibrinogen* 466 mg/dL (200-450)
[2022-05-13] MEDS: LIDOCAINE 1 % PF 30 ML INJECTION (20:17)
--- NOTE | 2022-05-13 20:34 | P.OBPRC_ITS ---
Procedure Delivery date: 05/13/22 Procedure Done: [employer] Procedure Details: The patient is a 36 year-old G 1 P 0 woman admitted on 05/12/2022 at 36 Weeks, 6 Days gestation for induction of labor for preeclampsia without severe features.? Cervical exam on admission was 1 cm/70 % effaced/-3 station with membranes intact in vertex presentation.? heart rate demonstrated baseline 130 bpm with moderate variability, positive accelerations, no decelerations; a category 1 tracing.? She had 4 doses of vaginal Cytotec for cervical ripening, then had Pitocin for augmentation of labor. AROM occurred at 2:32 p.m. with clear fluid. ? Labor Analgesia:? Epidural ? Pitocin:? Yes ? Labor onset:? 4:58 p.m. ? Complete:? 7:10 p.m. ? Pushing:? 7:10 p.m. ? heart tones during second stage were notable for baseline around 170. ? At 8:12 p.m. a viable female infant delivered in vertex LARS presentation over intact perineum. The infant's head delivered but the anterior shoulder could not be delivered with gentle guidance of the head downward. Shoulder dystocia was diagnosed. Following maneuvers were attempted: * Miracle maneuver, unsuccessful * Suprapubic pressure, unsuccessful * Infant was successfully delivered by guidance of the posterior shoulder. Total time elapsed between delivery of head and anterior shoulder was approximately 35 seconds. was placed briefly on maternal abdomen while cord was doubly clamped and cut.? Nose and mouth were bulb suctioned.? was passed off to attending nurses and brought to the warmer. Infant weight 6 lb, 8 oz. 7 at 1 minute and 8 at 5 minutes.? Shoulder dystocia: Yes, as described above.? Nuchal cord: No. ? Attempts to deliver placenta with gentle traction on the cord led to near avulsion of the cord. At this time, the placental disc was in the patient's vagina. The disc was grasped and removed with gentle traction. It was found to be complete with a three-vessel cord. ? Mother and infant were stable after delivery. ? Lacerations:? 1st degree, repaired with 2 interrupted [id number]-ibwab sutures of 3-0 Vicryl after infiltration with a small amount of 1% lidocaine. ? Blood loss: 125 mL. Blood loss measurement type: QBL ? Sponge and needles counts are correct.
[2022-05-13] MEDS: IBUPROFEN 600 MG TABLET PO (23:28)
[2022-05-14] VITALS (9 sets, daily range): BP systolic 126–157; BP diastolic 84–98; PULSE 79–91; RESP 16–20; TEMP 36.4–36.8; O2SAT 94–96
[2022-05-14 05:51] LABS: Hematocrit 39.2 % (33.0-51.0); Hemoglobin* 12.8 gm/dL (12.0-16.0); Mean Corpuscular HGB Conc 33 gm/dL (32-36); Mean Corpuscular Hemoglobin 28 pg (26-34); Mean Corpuscular Volume 85 fL (80-100); Platelet Count* 177 K/uL (140-440); Red Blood Count 4.61 m/uL (4.00-5.20); White Blood Count* 13.43 K/uL (4.50-11.00)
[2022-05-14 05:52] LABS: Slide Review Reflex No
[2022-05-14 05:57] LABS: Aspartate Amino Transferase* 28 U/L (12-35); Blood Urea Nitrogen* 17 mg/dL (5-24); Creatinine* 0.7 mg/dL (0.5-1.5); Estimated Glomerular Filt Rate 114 ml/min
--- NOTE | 2022-05-14 08:06 | PM.OBPNVD1 ---
OB - PN:Subj Subjective Date Seen: 05/14/22 Patient comments OB post-: no complaints and pain well controlled [place] status: feeding status: exclusively Narrative: Janice is a 36yo G1 now P1 at 37.0 weeks gestation s/p uncomplicated vaginal delivery. The patient feels well.? The pain is well controlled with current medications.? She has no new complaints.? Urinary output is adequate and she is voiding without difficulty.? Has a good appetite, is tolerating a general diet, is passing flatus, and has not yet had a bowel movement.? Has small amount of rubra lochia.? She is ambulating well. She is and reports it is going well.?She does desire to continue to work on her skills and see when able. OB - PN: Obj Exam Physical Exam: Vital signs: Temp Pulse Resp BP Pulse Ox O2 Del Method 98.2 F 79 20 136/84 94 05/14/22 03:00 05/14/22 03:00 05/14/22 03:00 05/14/22 03:00 05/14/22 03:00 05/14/22 03:00 Narrative: GENERAL APPEARANCE:? normal affect, alert, no distress? MOOD:? appropriate? CHEST:? clear to auscultation? HEART:? regular rate and rhythm? ABDOMEN:? soft, non-tender the uterine fundus is At Umbilicus, Midline and is appropriate for the stage of recovery.? PERINEUM:? mild edema of the perineum, there is a Perineal Laceration,? 1st degree that is healing well.? EXTREMITIES:? normal and trace edema? OB - PN: Obj Data Labs Labs: Laboratory Results - last 24 hr 05/13/22 05/13/22 05/13/22 06:05 17:26 18:22 WBC 9.82 RBC 4.82 Hgb 13.5 Hct 41.1 MCV 85 MCH 28 MCHC 33 RDW Coeff of Valeria 13.1 Plt Count 176 Neut % (Auto) 78.2 H Lymph % (Auto) 12.4 L [place] % (Auto) 8.6 Eos % (Auto) 0.4 Baso % (Auto) 0.1 Neut # (Auto) 7.70 H Lymph # (Auto) 1.20 [place] # (Auto) 0.80 Eos # (Auto) 0.04 Baso # (Auto) 0.01 Diff Slide Review Acceptable Review Fibrinogen 466 H BUN Creatinine Estimated Creat Clear Estimated GFR AST Blood Type Antibody Screen 05/13/22 05/14/22 05/14/22 18:22 05:25 05:25 WBC 13.43 H RBC 4.61 Hgb 12.8 Hct 39.2 MCV 85 MCH 28 MCHC 33 RDW Coeff of Valeria Plt Count 177 Neut % (Auto) Lymph % (Auto) [place] % (Auto) Eos % (Auto) Baso % (Auto) Neut # (Auto) Lymph # (Auto) [place] # (Auto) Eos # (Auto) Baso # (Auto) Diff Slide Review Fibrinogen BUN 17 Creatinine 0.7 Estimated Creat Clear 115.00 Estimated GFR 114 AST 28 Blood Type O Positive Antibody Screen NEGATIVE OB - PN: A/P Vaginal Delivery Assessment and Plan (1) care and examination immediately after delivery: Status: Acute (2) Preeclampsia: Status: Inactive (3) Lactating mother: Status: Acute Plan Continue to monitor blood pressures. May see as desired. Anticipate discharge tomorrow. Plan day: 1 Plan: routine care
[2022-05-14 08:09] LABS: Alanine Aminotransferase* 18 U/L (4-35)
[2022-05-14] MEDS: DOCUSATE SODIUM 100 MG CAPSULE PO (09:53)
[2022-05-14] MEDS: IBUPROFEN 600 MG TABLET PO (11:35)
[2022-05-14] MEDS: NIFEdipine 30 MG TAB.ER.24 PO ×2 (12:29→17:25)
[2022-05-14] MEDS: ACETAMINOPHEN 500 MG TABLET 1000 MG PO (16:39)
[2022-05-15] MEDS: ACETAMINOPHEN 500 MG TABLET 1000 MG PO ×2 (01:40→08:16)
[2022-05-15 04:00] VITALS: BP 142/91; PULSE 87; RESP 16; TEMP 36.6; O2SAT 95
[2022-05-15] MEDS: IBUPROFEN 600 MG TABLET PO (04:08)
[2022-05-15 08:03] VITALS: BP 127/85; PULSE 87; RESP 16; TEMP 36.4; O2SAT 95
[2022-05-15] MEDS: DOCUSATE SODIUM 100 MG CAPSULE PO (08:16)
--- NOTE | 2022-05-15 09:08 | PM.OBDSVD1 ---
DS: Providers Provider Date Seen: 05/15/22 Date of admission: 05/12/22 16:10 Primary care physician: Tonya Staples MD Admitting Clinician: Tonya Staples. Attending Physician on discharge: SHAILESH Mcgrath with supervision by Nati Ivey CNM Date of Discharge: 05/15/22 DS: Diagnosis Discharge Diagnosis (1) care and examination immediately after delivery: Status: Acute (2) Lactating mother: Status: Acute (3) Pre-eclampsia affecting puerperium: Status: Acute Exam Narrative: Exam Narrative: GENERAL APPEARANCE:? normal affect, alert, no distress? MOOD:? appropriate? CHEST:? clear to auscultation? HEART:? regular rate and rhythm? ABDOMEN:? soft, non-tender the uterine fundus is 2cm below Umbilicus, Midline and is appropriate for the stage of recovery.? PERINEUM:? mild edema of the perineum, there is a Perineal Laceration,? first degree that is healing well.? EXTREMITIES:? normal and no edema? Const: Vital Signs, click to edit/add: Vital Signs - 24 hr 05/14/22 11:45 05/14/22 11:30 05/14/22 16:39 Temperature 98.2 F 97.6 F Pulse Rate [Pulse Oximeter] 82 Respiratory Rate 16 Blood Pressure [Ri ght Arm] 142/96 H 157/97 H Pulse Oximetry 94 Oxygen Delivery Me thod Room Air 05/14/22 16:15 05/14/22 19:29 05/14/22 23:52 Temperature 97.6 F 97.7 F 97.8 F Pulse Rate [Pulse Oximeter] 91 88 87 Respiratory Rate 16 16 16 Blood Pressure [Ri ght Arm] 150/93 H 147/87 H 126/86 Pulse Oximetry 95 96 94 Oxygen Delivery Me thod Room Air Room Air Room Air 05/15/22 04:00 05/15/22 08:03 Temperature 97.9 F 97.6 F Pulse Rate [Pulse Oximeter] 87 87 Respiratory Rate 16 16 Blood Pressure [Ri ght Arm] 142/91 H 127/85 Pulse Oximetry 95 95 Oxygen Delivery Me thod Room Air Room Air Documenting provider has reviewed patient's vital signs: yes OB - DS: Summary Hospital Course Hospital Course: Janice is a 36yo at 37.0 weeks gestation s/p uncomplicated vaginal delivery, she was induced for a diagnosis of preeclampsia without severe features. The patient feels well.? The pain is well controlled with current medications.? She has no new complaints.? Urinary output is adequate and she is voiding without difficulty.? Has a good appetite, is tolerating a general diet, is passing flatus, and has had a bowel movement.? Has small amount of rubra lochia.? She is ambulating well. She is and reports it is going well.?She does desire to continue to work on her skills and see today. Her blood pressures have been elevated since delivery and she was started on 30 mg of Nifedipine XR on 05/14/22. Peripartum Data Infant delivery method: Vaginal Laceration description: Perineal - 1st Degree complications: none [place] Infant Gender: Female Discharge Plan: Home Status at Discharge Functional status at discharge: independent ambulation Overall status at discharge: patient is progressing back to baseline Time Spent with Patient Time attestation: Total time spent providing and/or coordinating discharge services: Time spent: Less than 30 minutes Discharge Plan Discharge Disposition: Home, Self-Care Date of Admission: 05/12/22 16:10 Attending Provider on Discharge: Nati Ivey Primary Care Provider: Tonya Staples Condition: Stable Anticipated Discharge Date/Time: 05/15/22 12:00 Discharge Medications: New nifedipine 30 mg Tablet Extended Release 24hr 30 mg PO DAILY Qty: 30 0RF acetaminophen 500 mg Tablet 1,000 mg PO Q6H PRNQty: 0 0RF docusate sodium 100 mg Capsule 100 mg PO DAILY Qty: 90 0RF ibuprofen 600 mg Tablet 600 mg PO Q6H PRNQty: 0 0RF Continued DHA 200 mg capsule 200 mg PO DAILY sertraline [Zoloft] 100 mg tablet 200 mg PO QDAY calcium carbonate [Calcium 600] 600 mg calcium (1,500 mg) tablet 600 mg PO QDAY fluticasone propionate 50 mcg/actuation spray,suspension 2 spray intranasal QDAY PRN (Reason: allergy symptoms) Qty: 16 3RF Rx Instructions: administer into each nostril Discontinued aspirin 81 mg capsule 81 mg PO QDAY Discharge Orders: Discharge Order (Routine); Ordered 05/15/22 Ordered By: Nati Ivey Patient Education: OB Over the Counter Medication Information, OB Vaginal/Breast Feeding Additional Instructions: Discharge instructions were reviewed with the patient including signs and symptoms of infection and home going medications Nothing vaginally for 6 weeks: no tampons or intercourse Off Work or School for 6 weeks Follow [facility] for a BP check in?one week Call with BP greater than or equal to 160/110 2-week visit: discuss infant feeding concerns, review control options and screen for anxiety/depression. 6-week visit for an annual exam. consultation services are available to all mothers and babies for the first year after delivery.? To make an appointment, please call [phone]. Activity Level: Activity as Tolerated Discharge Diet: Regular Follow Up Appointments: [facility] [Provider Group] Forms: [employer] Info Instructions
[2022-05-15 12:04] VITALS: BP 144/93; PULSE 85; RESP 16; TEMP 36.6; O2SAT 95
[2022-05-15] MEDS: NIFEdipine 30 MG TAB.ER.24 PO (12:13)
== END 2022-05-15 13:00 | disposition home or self-care (01) | DRG 807 ==
PROVIDERS: Obstetrics & Gynecology; Admitting Provider Obstetrics & Gynecology; PCP Obstetrics & Gynecology; Visit Provider Obstetrics & Gynecology
DX: O14.04 Mild to moderate pre-eclampsia, complicating childbirth (principal); Z37.0 Single live birth; O66.0 Obstructed labor due to shoulder dystocia; Z3A.36 36 weeks gestation of pregnancy; O70.0 First degree perineal laceration during delivery
CPT/HCPCS: 01967; 36415; 59200; 82565; 83735; 84450; 84460; 84520; 85025; 85027; 85384; 85610; 86850; 86900; 86901; 87635; 88307; A9270; J2001; J2270; J2370; J2795; J7120

== ENCOUNTER 2022-05-21 11:19 | Outpatient (CLI) | payer OTHER, SELFPAY | END 2022-05-21 11:20 | disposition home or self-care (01) | PROVIDERS: PCP Obstetrics & Gynecology; Referring Provider Obstetrics & Gynecology; Visit Provider Obstetrics & Gynecology | DX: R30.0 Dysuria (principal) | CPT/HCPCS: 87086 ==

== ENCOUNTER 2024-03-24 13:55 | Outpatient (CLI) | payer OTHER, SELFPAY ==
--- NOTE | 2024-03-24 14:00 | CRLHL7_ITS ---
For Patients: As a result of the Century Cures Act, medical imaging exams and procedure reports are released immediately into your electronic medical record. You may view this report before your referring provider. If you have questions, please contact your health care provider. INDICATION: First trimester dating and viability. TECHNIQUE: Ultrasound OB pelvis transabdominal and transvaginal. Real-time sanon-scale imaging of the pelvis was performed. COMPARISON: None. FINDINGS: Intrauterine gestation: Single. heart activity (bpm): 176. [place]-rump length: 2.2 cm. Gestational sac: 2.8 cm Estimated ultrasound age: 8 weeks 6 days SHERRIE by ultrasound: 10/28/2024. Yolk sac: Normal measuring 0.4 cm. Perigestational hemorrhage: Small subchorionic hemorrhage measuring 1.5 x 1 x 0.9 cm. Ovaries and adnexa: Right ovary measures 4 x 2.4 x 3.2 cm with corpus luteal cyst. Left ovary measures 3.2 x 3 x 2.5 cm. Suspicious pelvic fluid collections: None Small amount fluid within the right uterus versus fibroid measuring 1.2 x 1 x 1.1 cm. IMPRESSION: 1. Single viable intrauterine with estimated ultrasound age of 8 weeks 6 days and SHERRIE by ultrasound of 10/28/2024. 2. Small subchorionic hemorrhage measuring up to 1.5 cm. 3. Small fibroid versus fluid in the right uterus measuring up to 1.2 cm Dictated by Merlene Rogers MD @ 03/26/2024 9:29:04 AM (Electronically Signed)
== END 2024-03-24 13:56 | disposition home or self-care (01) ==
LOC: US 13:56
PROVIDERS: Visit Provider Registered Nurse
DX: Z34.91 Encounter for supervision of normal pregnancy, unspecified, first trimester (principal); O20.9 Hemorrhage in early pregnancy, unspecified; Z3A.08 8 weeks gestation of pregnancy
CPT/HCPCS: 76817; 82565; 82570; 83021; 84156; 84450; 84460; 84520; 86592; 86703; 86704; 86706; 86762; 86787; 86803; 86850; 86900; 86901; 87086; 87340; 87491; 87591

== ENCOUNTER 2024-05-21 08:43 | Outpatient (CLI) | payer OTHER, SELFPAY | END 2024-05-21 08:44 | disposition home or self-care (01) | LOC: NFLDREF 05-23 16:47 | PROVIDERS: Visit Provider Registered Nurse | DX: Z34.90 Encounter for supervision of normal pregnancy, unspecified, unspecified trimester (principal); Z87.59 Personal history of other complications of pregnancy, childbirth and the puerperium | CPT/HCPCS: 82570; 84156 ==

== ENCOUNTER 2024-06-02 09:58 | Outpatient (CLI) | payer OTHER, SELFPAY | END 2024-06-02 09:59 | disposition home or self-care (01) | LOC: US 09:59 | PROVIDERS: Visit Provider Obstetrics & Gynecology | DX: O09.512 Supervision of elderly primigravida, second trimester (principal); Z3A.18 18 weeks gestation of pregnancy | CPT/HCPCS: 76811 ==

== ENCOUNTER 2024-06-16 09:51 | Outpatient (CLI) | payer OTHER, SELFPAY | END 2024-06-16 09:52 | disposition home or self-care (01) | LOC: FRMREF 09:53 | PROVIDERS: Visit Provider Obstetrics & Gynecology | DX: O26.892 Other specified pregnancy related conditions, second trimester (principal); R30.0 Dysuria; N89.8 Other specified noninflammatory disorders of vagina; Z3A.20 20 weeks gestation of pregnancy | CPT/HCPCS: 87086 ==

== ENCOUNTER 2024-06-17 11:00 | Outpatient (CLI) | payer OTHER, SELFPAY ==
[2024-06-17 11:18] LABS: Clue Cells No Clue Cells Seen (None Seen); Trichomonas No Trichomonas Seen (None Seen); Yeast No Yeast Seen (None Seen)
== END 2024-06-17 11:01 | disposition home or self-care (01) ==
LOC: NFLDREF 11:01
PROVIDERS: Visit Provider Obstetrics & Gynecology
DX: N89.8 Other specified noninflammatory disorders of vagina (principal)
CPT/HCPCS: 87210

== ENCOUNTER 2024-08-12 08:00 | Outpatient (CLI) | payer OTHER, SELFPAY | END 2024-08-12 08:01 | disposition home or self-care (01) | LOC: NFLDREF 08-15 12:18 | PROVIDERS: Visit Provider Obstetrics & Gynecology | DX: Z34.83 Encounter for supervision of other normal pregnancy, third trimester (principal) | CPT/HCPCS: 86592 ==

== ENCOUNTER 2024-08-12 08:04 | Outpatient (CLI) | payer OTHER, SELFPAY ==
--- NOTE | 2024-08-12 08:15 | CRLHL7_ITS ---
For Patients: As a result of the Cures Act, medical imaging exams and procedure reports are released immediately into your electronic medical record. You may view this report before your referring provider. If you have questions, please contact your health care provider. OBSTETRICAL ULTRASOUND ??? FOLLOW-UP, 08/12/2024 INDICATION: Preexisting hypertension. Follow-up growth. CLINICAL HISTORY: LMP: 01/25/2024 SHERRIE by LMP: 10/31/2024 Gestational Age: 28 weeks 4 days COMPARISON: 06/02/2024, 03/24/2024. TECHNIQUE: Real-time sanon-scale transabdominal imaging of the fetus was performed. FINDINGS: Fetus: Single Cervix: Not visualized positioning: Vertex Amniotic Fluid: 3.6 cm SDP Placenta technique: Transabdominal Placenta position: Posterior, left wall heart rate: 131 bpm BIOMETRY: BPD: 7.2 cm, 28 weeks 6 days, 45.8% HC: 26.8 cm, 29 weeks 1 day, 35.6% AC: 24.7 cm, 29 weeks 0 days, 54.6% FL: 5.2 cm, 27 weeks 5 days, 14.0% FL/AC Ratio: 21.0% HC/AC ratio: 1.1 EFW: 1244 grams; 2 lbs. 12 oz. age by this ultrasound: 28 weeks 5 days SHERRIE by this ultrasound: 10/30/2024 Percentile by SHERRIE: 35.7% IMPRESSION: 1. Sonographic gestational age 28 weeks 5 days and sonographic due date 10/30/2024. Good correlation with dates. Normal interval growth. 2. Estimated weight is 36th percentile. Abdominal circumference is 55th percentile. WILMER EVANS M.D. Diagnostic Radiologist [email or web address] Transcribed: 9:[address]/Dictated by: Wilmer Evans MD @ 08/12/2024 9:05:00 AM (Electronically Signed)
== END 2024-08-12 08:05 | disposition home or self-care (01) ==
LOC: US 08:05
PROVIDERS: Visit Provider Obstetrics & Gynecology
DX: O10.913 Unspecified pre-existing hypertension complicating pregnancy, third trimester (principal); Z3A.28 28 weeks gestation of pregnancy
CPT/HCPCS: 76816

== ENCOUNTER 2024-08-31 09:40 | Outpatient (CLI) | payer OTHER, SELFPAY | END 2024-08-31 09:41 | disposition home or self-care (01) | LOC: NFLDREF 09-03 09:54 | PROVIDERS: Visit Provider Internal Medicine Nephrology | DX: O10.919 Unspecified pre-existing hypertension complicating pregnancy, unspecified trimester (principal); R80.9 Proteinuria, unspecified | CPT/HCPCS: 82570; 84156; 84450; 84460 ==

== ENCOUNTER 2024-09-09 12:05 | Outpatient (CLI) | payer OTHER, SELFPAY ==
--- NOTE | 2024-09-09 12:15 | CRLHL7_ITS ---
For Patients: As a result of the Century Cures Act, medical imaging exams and procedure reports are released immediately into your electronic medical record. You may view this report before your referring provider. If you have questions, please contact your health care provider. OB ULTRASOUND BIOPHYSICAL PROFILE, CLINICAL HISTORY: Pre-existing HTN. COMPARISON: 08/12/2024, 06/02/2024. TECHNIQUE: Real time sanon scale imaging of the fetus was performed. Transabdominal imaging performed. FINDINGS: LMP: 01/25/2024. SHERRIE by LMP: 10/31/2024. GA: 32 weeks 4 days. Cervix: Not visualized. Positioning: Vertex. Amniotic Fluid: 4.4 cm SDP. BIOPHYSICAL PROFILE: Gross Body Movements: 2 Tone: 2 Respiratory Activity: 2 Amniotic Fluid SDP: 2 Total Score: 8/8 Placenta: Technique: TA. Placenta Position: Posterior, left wall. Dopplers: Heart Rate: 137 bpm. BIOMETRY: BPD: 7.9 cm, 31 weeks 6 days. 23% HC: 29.6 cm, 32 weeks 5 days. 19% AC: 28.6 cm, 32 weeks 4 days. 50% FL: 6.0 cm, 31 weeks 1 day. 50% FL/AC Ratio: 20.90% HC/AC Ratio: 1.04. EFW: 1902 g, 4 lb 3 oz. age by this US: 32 weeks 1 day. SHERRIE by this US: 11/03/2024. Percentile by SHERRIE: 26% IMPRESSION: 1. Sonographic gestational age 32 weeks 1 day and sonographic due date 11/03/2024. Good correlation with dates. Normal interval growth. 2. Estimated weight 26th percentile. Abdominal circumference 50th percentile. 3. Normal biophysical profile score 10/22. Wilmer Weir M.D. Diagnostic Radiologist [email or web address] Transcribed: 5:18 pm DW/Dictated by: Wilmer Weir MD @ 09/09/2024 3:57:00 PM (Electronically Signed)
--- OUTSIDE RECORDS SUMMARY | 2024-09-10 01:03 | XMS_ITS | Clinical Summary ---
Author Organization [facility] Address [address] [place] [id number] Care Team Providers Care Train Driver Name Role Phone Josette Eagle Primary Care Provider [phone] Allergies Active Allergy Reactions Criticality Noted Date Comments Penicillins Rash 05/07/2021 Penicillins *Unknown,Rash,*Unkno wn - Follow up needed Low 03/31/2008 Medications methylergonovine (METHERGINE) 0.2 mg tablet Take 1 tablet by mouth every 4 hours after to control bleeding. 4 tablet 10/26/2015 11:39 AM CDT 6 Active azithromycin (ZITHROMAX) 250 mg tablet Take as directed. 6 tablet 10/26/2015 11:39 AM CDT 6 Active misoprostol (CYTOTEC) 200 mcg tablet Bring to office to use as directed. 6 tablet 10/26/2015 11:39 AM CDT 6 Active propranolol ER (INDERAL LA) 120 mg Cs24 Sustained-Release capsule 2 Active sertraline (ZOLOFT) 100 mg tablet 2 Active omeprazole (PRILOSEC) 20 mg Delayed-Release capsule Take 20 mg by mouth once daily. Two caps QD Active famotidine (Pepcid) 20 mg tablet Take 20 mg by mouth 2 times daily. Active ondansetron (ZOFRAN ODT) 4 mg disintegrating tabletIndications:E pigastric abdominal pain Place 1 Tablet (4 mg) on the tongue every 8 hours if needed for Nausea/Vomit ing. 10 Tablet 2 Active Social History Tobacco Use Types Packs/Day Years Used Date Smoking Tobacco: Former Smokeless Tobacco: Never Alcohol Use Standard Drinks/Week Comments Yes 0 (1 standard drink = 0.6 oz pur e alcohol) Socially Comments No Sex and Gender Information Value Date Recorded Sex Assigned at Not on file Legal Sex Female 11:06 AM CDT Gender Identity Not on file Sexual Orientation Not on file Obstetrics History Last Filed Vital Signs Vital Sign Reading Time Taken Comments Blood Pressure 134/86 01/23/2022 6:50 PM FIREARMS INSPECTOR Pulse 96 01/23/2022 6:50 PM FIREARMS INSPECTOR Temperature 37 C (98.6 F) 01/23/2022 6:50 PM FIREARMS INSPECTOR Respiratory Rate 12 01/23/2022 6:50 PM FIREARMS INSPECTOR Oxygen Saturation 96% 01/23/2022 6:50 PM FIREARMS INSPECTOR Inhaled Oxygen Concentration - - Weight 96.6 kg (213 lb) 01/23/2022 6:50 PM FIREARMS INSPECTOR Height 175.3 cm (5' 9) 01/23/2022 6:50 PM FIREARMS INSPECTOR Body Mass Index 31.45 01/23/2022 6:50 PM FIREARMS INSPECTOR Plan of Treatment Health Maintenance Due Date Last Done Comments Tdap 12/21/1995 Depression screening for age 12+ 1996 HIV for age 15-65 12/21/1999 BMI (ht and wt on same day) for age 18+ 2002 Hepatitis C screening for ag e 18-79 2002 Hepatitis B series for 19+ ( 1 of 3 - 19+ 3-dose series) 12/21/2003 Tetanus booster 2004 Pap test for age 21-65 2005 COVID-19 vaccine series ( season) 2023 Influenza Vaccine (Season Ended) 2024 Pneumococcal series for age 6-49 Aged Out No longer eligible based on patient's age to complete this topic Care Teams Train Driver Relationship Specialty Start Date End Date Josette Eagle PA [address] [phone] PCP - General 05/07/21
== END 2024-09-09 12:06 | disposition home or self-care (01) ==
LOC: US 12:05
PROVIDERS: Visit Provider Obstetrics & Gynecology
DX: O10.913 Unspecified pre-existing hypertension complicating pregnancy, third trimester (principal); Z3A.32 32 weeks gestation of pregnancy
CPT/HCPCS: 76816; 76819; 82565; 82570; 84156; 84450; 84460; 84520

== ENCOUNTER 2024-09-16 09:08 | Outpatient (CLI) | payer OTHER, SELFPAY ==
--- NOTE | 2024-09-16 09:15 | CRLHL7_ITS ---
For Patients: As a result of the Century Cures Act, medical imaging exams and procedure reports are released immediately into your electronic medical record. You may view this report before your referring provider. If you have questions, please contact your health care provider. INDICATION: Hypertension TECHNIQUE: Ultrasound OB pelvis transabdominal. Real-time sanon-scale imaging of the fetus was performed with color Doppler and spectral Doppler analysis of the umbilical artery without stress testing. COMPARISON: 09/09/2024 FINDINGS: Sonographic imaging demonstrates a single living intrauterine gestation. Fetus demonstrates a regular cardiac rate of 123 beats per minute. Fetus has a cephalic orientation. The placenta lies posterior. Amniotic fluid volume appears normal with a MVP of 3.2 cm. breathing movements, motion, and tone were all observed. IMPRESSION: Single viable intrauterine with a biophysical profile 10/22. Dictated by Ruddy Hinson MD @ 09/16/2024 10:26:49 AM (Electronically Signed)
== END 2024-09-16 09:09 | disposition home or self-care (01) ==
LOC: US 09:08
PROVIDERS: Visit Provider Obstetrics & Gynecology
DX: O10.919 Unspecified pre-existing hypertension complicating pregnancy, unspecified trimester (principal)
CPT/HCPCS: 76819; 82565; 82570; 84156; 84450; 84460; 84520

== ENCOUNTER 2024-09-23 09:12 | Outpatient (CLI) | payer OTHER, SELFPAY ==
--- NOTE | 2024-09-23 09:15 | CRLHL7_ITS ---
For Patients: As a result of the Cures Act, medical imaging exams and procedure reports are released immediately into your electronic medical record. You may view this report before your referring provider. If you have questions, please contact your health care provider. OB ULTRASOUND BIOPHYSICAL PROFILE, 09/23/2024 CLINICAL HISTORY: Pre-existing HTN. COMPARISON: 09/16/2024, 09/09/2024, 08/12/2024, 06/02/2024. TECHNIQUE: Real time sanon scale imaging of the fetus was performed. Transabdominal imaging performed. FINDINGS: LMP: 01/25/2024. SHERRIE by LMP: 10/31/2024. GA: 34 weeks 4 days. Cervix: Not visualized. Positioning: Vertex. Amniotic Fluid: 3.9 cm SDP. BIOPHYSICAL PROFILE: Gross Body Movements: 2 Tone: 2 Respiratory Activity: 2 Amniotic Fluid SDP: 2 Total Score: 8 Placenta: Technique: TA. Placenta Position: Fundal. Dopplers: Heart Rate: 142 bpm. IMPRESSION: Normal biophysical profile 10/22. Wilmer Weir M.D. Diagnostic Radiologist [email or web address] Transcribed: 11:12 am DW/Dictated by: Wilmer Weir MD @ 09/23/2024 9:51:00 AM (Electronically Signed)
== END 2024-09-23 09:13 | disposition home or self-care (01) ==
LOC: US 09:12
PROVIDERS: Visit Provider Obstetrics & Gynecology
DX: O10.913 Unspecified pre-existing hypertension complicating pregnancy, third trimester (principal); Z3A.34 34 weeks gestation of pregnancy
CPT/HCPCS: 76819; 82565; 82570; 84156; 84450; 84460; 84520

== ENCOUNTER 2024-09-24 12:36 | Outpatient (CLI) | payer OTHER, SELFPAY | END 2024-09-24 12:37 | disposition home or self-care (01) | PROVIDERS: Visit Provider Obstetrics & Gynecology | DX: O10.913 Unspecified pre-existing hypertension complicating pregnancy, third trimester (principal); Z3A.34 34 weeks gestation of pregnancy | CPT/HCPCS: 82565; 82570; 84156; 84450; 84460; 84520 ==

== ENCOUNTER 2024-09-27 09:49 | Outpatient (CLI) | payer OTHER, SELFPAY | END 2024-09-27 09:50 | disposition home or self-care (01) | LOC: NFLDREF 09-29 03:55 | PROVIDERS: Visit Provider Obstetrics & Gynecology | DX: O10.913 Unspecified pre-existing hypertension complicating pregnancy, third trimester (principal); Z3A.35 35 weeks gestation of pregnancy | CPT/HCPCS: 82565; 82570; 84156; 84450; 84460; 84520 ==

== ENCOUNTER 2024-09-30 09:09 | Outpatient (CLI) | payer OTHER, SELFPAY ==
--- NOTE | 2024-09-30 09:15 | CRLHL7_ITS ---
For Patients: As a result of the Cures Act, medical imaging exams and procedure reports are released immediately into your electronic medical record. You may view this report before your referring provider. If you have questions, please contact your health care provider. OB ULTRASOUND BIOPHYSICAL PROFILE, 09/30/2024 CLINICAL HISTORY: Pre-existing HTN. COMPARISON: 09/23/2024, 09/16/2024, 09/09/2024. TECHNIQUE: Real time sanon scale imaging of the fetus was performed. Transabdominal imaging performed. FINDINGS: SHERRIE by LMP: 10/31/2024. GA: 35 weeks 4 days. Cervix: Not visualized. Positioning: Vertex. Amniotic Fluid: 5.6 cm SDP. BIOPHYSICAL PROFILE: Gross Body Movements: 2 Tone: 2 Respiratory Activity: 2 Amniotic Fluid SDP: 2 Total Score: 8 Placenta: Technique: TA. Placenta Position: Fundal. Dopplers: Heart Rate: 138 bpm. IMPRESSION: Normal biophysical profile score of 8/8. Wilmer Weir M.D. Diagnostic Radiologist [email or web address] Transcribed: 11:00 am DW/Dictated by: Wilmer Weir MD @ 09/30/2024 9:31:00 AM (Electronically Signed)
== END 2024-09-30 09:10 | disposition home or self-care (01) ==
LOC: US 09:09
PROVIDERS: Visit Provider Obstetrics & Gynecology
DX: O10.913 Unspecified pre-existing hypertension complicating pregnancy, third trimester (principal); Z3A.35 35 weeks gestation of pregnancy; Z88.0 Allergy status to penicillin
CPT/HCPCS: 76819

== ENCOUNTER 2024-09-30 10:28 | Outpatient (CLI) | payer OTHER, SELFPAY ==
[2024-10-01 11:14] LABS: Strep B DNA Probe Negative (Negative)
[2024-10-01 11:30] LABS: Strep B Susceptibility Needed? No
== END 2024-09-30 10:29 | disposition home or self-care (01) ==
LOC: NFLDREF 10:29
PROVIDERS: Visit Provider Obstetrics & Gynecology
DX: Z34.93 Encounter for supervision of normal pregnancy, unspecified, third trimester (principal); Z3A.35 35 weeks gestation of pregnancy; Z88.0 Allergy status to penicillin
CPT/HCPCS: 82565; 82570; 84156; 84450; 84460; 84520; 87081; 87653

== ENCOUNTER 2024-10-04 16:24 | Outpatient (CLI) | payer OTHER, SELFPAY ==
[2024-10-04] VITALS (9 sets, daily range): BP systolic 123–148; BP diastolic 84–98; PULSE 80–95
[2024-10-04 17:17] LABS: Hematocrit 38.9 % (33.0-51.0); Hemoglobin* 12.8 gm/dL (12.0-16.0); Mean Corpuscular HGB Conc 33 gm/dL (32-36); Mean Corpuscular Hemoglobin 28 pg (26-34); Mean Corpuscular Volume 86 fL (80-100); Red Blood Count 4.53 m/uL (4.00-5.20); White Blood Count* 8.73 K/uL (4.50-11.00)
[2024-10-04 17:21] LABS: Slide Review Reflex No
[2024-10-04 17:31] LABS: Alanine Aminotransferase* 26 U/L (4-35); Aspartate Amino Transferase* 33 U/L (12-35); Blood Urea Nitrogen* 15 mg/dL (5-24); Creatinine* 0.9 mg/dL (0.5-1.5); Estimated Glomerular Filt Rate 83 ml/min
[2024-10-04 18:10] LABS: Protein Creatinine Ratio Urine 0.09 (0-0.19)
--- NOTE | 2024-10-04 18:33 | PM.OBLDTN ---
OB - Triage/Final Diagnosis Visit Information Time Seen by Provider: 18:00 Date Seen: 10/04/24 Date of evaluation: 10/04/24 Narrative: The patient is a 38 year old 2 para 1001 at 36.1 weeks gestation by LMP, who presents with increased BP in the setting of chronic hypertension. She's on labetalol 100 mg BID currently. Generally, BP is in 130s/80s. Today it's been 150s/90s. Additionally, she had a reading of 160/95 and was told to come in for evaluation. Notably, she was over 2 hours late in taking her labetalol today. CHTN - On labetalol 100 mg - BPs in triage: 130-140s/80-90s. No severe ranging BP after 2hrs of monitoring. - Symptoms: Denies headaches, visual disturbances, shortness of breath or RUQ pain - Magnesium: currently not indicated - IV antihypertensives: currently not indicated - PO antihypertensive: need med adjustment. Will increased her labetalol to 300 mg BID. - Pre-eclampsia labs 10/04/24: Hgb 12.8 Plt 182 Cr 0.9 ALT 26 AST 33 - Reviewed labs with patient. No severe ranging labs. Although, there's a bump in her Cr. It does not meet criteria for severe features (ie >1.1 or doubling of baseline). She has close interval follow up with labs this week. Will reassess then. Discussed with patient that if she is diagnosed with SIPreE, delivery will be at 37 weeks. If she meets criteria for severe features, delivery will be at the time severe feature is diagnoses as she is beyond 34 weeks. Active movement. Denies Ctx, LOF, vaginal bleeding or abnormal vaginal discharge. F/u on 10/07 with labs, bpp, and high risk visit. Strict return and labor precautions reinforced. Patient verbalized understanding. NST: Baseline 120 bpm, moderate variability, +multiple accels, negative decel [place]: Irritable Evaluation Laboratory results: Laboratory Tests 10/04/24 10/04/24 Range/Units 17:04 16:49 WBC 8.73 (4.50-11.00) K/uL RBC 4.53 (4.00-5.20) m/uL Hgb 12.8 (12.0-16.0) gm/dL Hct 38.9 (33.0-51.0) % MCV 86 (80-100) fL MCH 28 (26-34) pg MCHC 33 (32-36) gm/dL Plt Count 182 (140-440) K/uL BUN 15 (5-24) mg/dL Creatinine 0.9 (0.5-1.5) mg/dL Estimated GFR 83 ml/min AST 33 (12-35) U/L ALT 26 (4-35) U/L Urine Creatinine 107.4 mg/dL Protein/Creatinin Ratio 0.09 (0-0.19) Urine Total Protein 10 mg/dL Vital signs: Vital Signs - 24 hr 10/04/24 16:37 10/04/24 16:53 10/04/24 17:10 Pulse Rate 83 88 91 Blood Pressure 141/87 H 127/84 123/84 10/04/24 17:23 10/04/24 17:40 10/04/24 17:53 Pulse Rate 84 80 85 Blood Pressure 134/90 H 135/88 142/89 H 10/04/24 18:09 10/04/24 18:23 Pulse Rate 87 95 Blood Pressure 135/86 148/98 H
--- NOTE | 2024-10-04 18:45 | PC.OBNST ---
NST Note NST Note Start: 10/04/24 16:27 Freq: ONCE Status: Active Protocol: Document 10/04/24 16:27 [facility] (Rec: 10/04/24 18:41 [facility] No Response) NST Note 2 Para (# of births) 1 EDC 10/31/24 Gestational Age In 36 Weeks & 1 Days Weeks & Days High Risk Factors High Blood Pressure - Preexisting Patient Presented Other with Complaint(s) of Other Complaints blood pressure monitoring Reactive Yes Appropriate for Yes Gestational Age AGUSTIN Naidu RN Date 10/04/24 Reactive Yes Appropriate for Yes Gestational Age AGUSTIN Long RN Date 10/04/24 OB NST charge Yes Complete NST Note Yes via Write Note The provider's electronic signature indicates the NST is reactive/appropriate for gestational age. *Note to provider: If an addendum is required, open the patient's chart and click on the note under the Nurse/Allied Health tab.
== END 2024-10-04 18:50 | disposition home or self-care (01) ==
LOC: OB OUT 16:24 → OB 16:25
PROVIDERS: Visit Provider Obstetrics & Gynecology
DX: O10.913 Unspecified pre-existing hypertension complicating pregnancy, third trimester (principal); Z3A.36 36 weeks gestation of pregnancy
CPT/HCPCS: 36415; 59025; 82565; 82570; 84156; 84450; 84460; 84520; 85027; G0463

== ENCOUNTER 2024-10-07 09:21 | Outpatient (CLI) | payer OTHER, SELFPAY ==
--- NOTE | 2024-10-07 09:15 | CRLHL7_ITS ---
For Patients: As a result of the Century Cures Act, medical imaging exams and procedure reports are released immediately into your electronic medical record. You may view this report before your referring provider. If you have questions, please contact your health care provider. OBSTETRICAL ULTRASOUND ??? BIOPHYSICAL PROFILE and FOLLOW-UP, 10/12/2024 INDICATION: Preexisting hypertension. CLINICAL HISTORY: LMP: 01/25/2024 SHERRIE by LMP: 11/10/2024 Gestational Age: 36 weeks 4 days Surgery: One COMPARISON: Multiple Previous Ultrasounds: 09/30/2024, 09/23/2024, 09/16/2024, 09/09/2024, 08/12/2024, 06/02/2024, 03/24/2024. TECHNIQUE: Multiple transabdominal sanon-scale color and M-mode Doppler images were obtained of the fetus. Biophysical profile was performed. FINDINGS: Fetus: Single Cervix: Not visualized positioning: Vertex Amniotic Fluid: 3.6 cm SDP BIOPHYSICAL PROFILE: Gross body movements: 2 tone: 2 Respiratory activity: 2 Amniotic fluid SDP: 2 Total score: 8 Placenta technique: Transabdominal Placenta position: Posterior, left wall heart rate: 120 bpm BIOMETRY: BPD: 8.5 cm, 34 weeks 1 day, 7% HC: 31.3 cm, 35 weeks 0 days, 3% AC: 32.7 cm, 36 weeks 4 days, 63% FL: 6.8 cm, 34 weeks 6 days, 11% FL/AC Ratio: 20.78% HC/AC ratio: 0.93 EFW: 2750 grams; 6 lbs. 1 oz. age by this ultrasound: 35 weeks 1 day SHERRIE by this ultrasound: 11/10/2024 Percentile by SHERRIE: 31% COMMENTS: Growth today = 09/09/2024 = 26%; 08/12/2024 = 36%; 06/02/2024 = 92% IMPRESSION: 1. Estimated weight is at the 31st percentile. 2. BPD is at the 7th percentile, HC at the 3rd percentile, FL is at the 11th percentile. 3. Normal biophysical profile score of 10/22. DANICA PEREZ M.D. Body/Diagnostic Radiologist [email or web address] Transcribed: 10:[address]/Dictated by: Danica Perez MD @ 10/12/2024 8:48:00 AM (Electronically Signed)
== END 2024-10-07 09:22 | disposition home or self-care (01) ==
LOC: US 09:21
PROVIDERS: Visit Provider Obstetrics & Gynecology
DX: O10.913 Unspecified pre-existing hypertension complicating pregnancy, third trimester (principal); Z3A.36 36 weeks gestation of pregnancy
CPT/HCPCS: 76816; 76819; 82565; 82570; 84156; 84450; 84460; 84520

== ENCOUNTER 2024-10-13 05:52 | Inpatient (IN) | payer OTHER, SELFPAY ==
[2024-10-13] VITALS (19 sets, daily range): BP systolic 125–155; BP diastolic 64–100; PULSE 68–87; RESP 16–24; TEMP 36.6–36.9; O2SAT 96–100; BMI 35.8
[2024-10-13] MEDS: LACTATED RINGERS 1000 ML 1,000 ML 1200 ML IV (06:30)
--- NOTE | 2024-10-13 06:46 | PM.OBHPCS1 ---
OB - H&P: HPI History of Present Illness Chief complaint: maternity Narrative: Janice is a 38-year-old at 37 weeks 3 days gestational age admitted for scheduled primary with bilateral salpingectomy. Her is complicated by chronic hypertension with recent exacerbation requiring up titration of her medications, AMA, history of a shoulder dystocia (with subsequent request for primary ), depression, elevated 1 hour Glucola with measuring 1 hour blood glucose monitoring to follow, small uterine fibroid at the fundus. Patient is feeling well today with no acute concerns. Denies regular/painful contractions bleeding no fluid. Endorses active movement. Specific Issues/Plans G 2 P 1 : Kevon Daughter: Chacha Ontiveros Baby: Anderson # Advanced Maternal age Declines genetic testing Level 2 US at 20 weeks: [facility] referral placed 04/21/24 # History of preeclampsia w/o severe features AND Chronic hypertension with blood pressure 138/88 on 04/21/2024 baseline pre e labs P/C ratio 0.27* 24 hour protein: 406. Referred to Nephrology. ALT AST normal. Nephrology plan below. daily low dose aspirin at 12 weeks Begin medication if BPs > / = 140/90. Patient tolerates labetalol better than nifedipine. 05/21/23: Started labetalol 100 mg BID. --> increased to 300 mg BID on 10/04 every 4 weeks starting at 28 weeks Weekly BPP and preE labs starting at 32 weeks (scheduled) Nephrology plan Performed blood tests to check kidney function and urinalysis at next visit schedule follow-up 3-4 months after delivery to reassess protein urea and kidney function. Adjust labetalol dosing to maintain less than 140/90.? Recommended diet modifications.? Reassess proteinuria 3-4 months with 24 hour urine collection.? Monitor proteinuria in .? If significantly elevated, consider further evaluation. Seen by Dr. Anaya in nephrology 09/07/24: No changes recommended. Will repeat 24 hour urine collection 3 months . New mild elevation of AST = 43 on 09/23, otherwise normal labs. Repeat labs 09/25: AST 40. Repeat 09/27: 36. # History of shoulder dystocia, 6#8oz. No sequelae. 35 seconds. Discussed risk of recurrence and option of primary . Will follow EFW in 3rd trimester Patient prefers primary delivery # Desires bilateral salpingectomy. Private insurance. # Depression. Well managed on 200 mg sertraline # Small fibroid versus fluid in the right uterus measuring up to 1.2 cm # hepatitis-B indeterminate: Declined booster during # 1 hr GTT 161. Prefers to avoid 3 hr GTT due to nausea. Referred to nutrition and prescribed glucometer. One week of monitoring: only two minimally elevated postprandial values (120, 123) - no diabetes # Suspected perioral dermatitis at 32 weeks Prescribed topical metronidazole 1% gel nightly for 8 weeks. Imagin/19: Level 2 US. Breech, posterior placenta without previa, three-vessel cord, SDP 4.0 cm, EFW 92%, AC 77%, normal visualized anatomy. 08/12: cephalic, SDP 3.6 cm, EFW 35.7%, AC 54.6%, all other growth parameters within normal ranges 09/08: cephalic, SDP 4.4, BPP 8/8, EFW 26%, AC 50%, all growth parameters within normal ranges. 10/07/24: cephalic, SDP 3.6, EFW 31%, BPD 7%, HC 3%, AC 63%, FL 11%. 6 lbs, 1 oz. Immunizations: Flu: Completed December 2023 Covid: Completed, not up-to-date with boosters. Recommended. Declines. Tdap: 08/23 [facility] Medical History Pre-eclampsia affecting puerperium ?O14.95 - Unspecified pre-eclampsia, complicating the puerperium (ICD-10) Preeclampsia ?O14.90 - Unspecified pre-eclampsia, unspecified trimester (ICD-10) History of recurrent ear infection ?Z86.69 - Personal history of other diseases of the nervous system and sense organs (ICD-10) COVID-19 virus infection ?U07.1 - COVID-19 (ICD-10) Migraines ?G43.909 - Migraine, unspecified, not intractable, without status migrainosus (ICD-10) Surgical History H/O wisdom tooth extraction ?K08.409 - Partial loss of teeth, unspecified cause, unspecified class (ICD-10) Family History Mother Thyroid disease Sister Multiple sclerosis Father Carcinoma of biliary tract Social History Narrative: Lives in [place] with . Works for [employer] from home. No tob / ETOH / ilicits What is your current living situation?: I presently have a place to live Problems where you live: no known problems In the past 12 months, utilities in danger of being shut off: no In past 12 months, lack of transportation kept you from medical appts, meetings, work, or getting things needed for daily living: no In the past 12 mos, have been you worried that your food would run out before you had money to buy more?: never true In the past 12 mos, the food you bought just didn't last and you didn't have money to buy more?: never true Smoking Status: Never smoker How often do you have a drink containing alcohol: never AUDIT-C Alcohol total score: 0 Non-prescribed substance use: denies use How often does anyone, including family, friends and others, physically hurt you: never How often does anyone, including family, friends and others, insult or talk down to you: never How often does anyone, including family, friends and others, threaten you with harm: never How often does anyone, including family, friends and others, scream or curse at you: never Meds Home Medications and Allergies Home Medications ?Medication ?Instructions ?Recorded ?Confirmed ?Type docosahexaenoic acid 200 mg 200 mg PO DAILY 10/05/21 10/07/24 History capsule ( DHA) sertraline 100 mg tablet (Zoloft) 200 mg PO QDAY 10/05/21 10/07/24 History fluticasone propionate 50 1 spray intranasal BID #16 grams 04/16/24 10/07/24 Rx mcg/actuation nasal spray,suspension (Flonase Allergy Relief) Held on 10/04/24. Instructions: not needed aspirin 81 mg chewable tablet 81 mg PO QDAY 05/17/24 10/07/24 History metronidazole 1 % topical gel 1 applic topical QHS #60 grams 09/09/24 10/07/24 Rx labetalol 100 mg tablet 300 mg PO BID 10/07/24 History Allergies Allergy/AdvReac Type Severity Reaction Status Date / Time Penicillins Allergy Mild Rash Verified 10/07/24 10:19 OB - H&P: Exam Physical Exam: Vital signs: Pulse BP 86 131/88 10/13/24 06:09 10/13/24 06:09 Narrative: General: Alert and oriented, no acute distress Psych: Appropriate mood and affect Abdomen: Gravid.EFW 2750g by USon 10/07, vertex heart tones: Reactive NST on admission. Baseline of 130 beats per minute, moderate variability, 15x15 accelerations seen including prolonged accelerations at times. Toward end of tracing, new baseline established of 150bpm with moderate variability. [place]: No contractions Assessment and Plan Assessment and plan (1) : Status: Acute (2) Abnormal glucose tolerance test: Status: Acute (3) Chronic hypertension affecting : Problem comment: with gestational exacerbation Status: Acute (4) Advanced maternal age in multigravida: Status: Acute (5) History of shoulder dystocia in prior : Status: Acute (6) Depression: Status: Acute (7) History of pre-eclampsia: Status: Acute Plan Janice is a 38-year-old at 37w3d GA admitted for scheduled primary and bilateral salpingectomy. Her is complicated by chronic hypertension with recent exacerbation requiring increase in her antihypertensive regimen, AMA, history of shoulder dystocia, undesired fertility, elevated 1 hour glucose with reassuring blood glucose monitoring to follow, depression. Patient affirmed her desire to proceed with primary and bilateral salpingectomy this morning after discussion of risks, benefits and alternatives. Risks including bleeding, infection, damage to surrounding structures (uterus, tubes, ovaries, bowel, bladder, baby) were discussed. Discussed regret as a potential complication of sterilization, where she is clear and consistent in her desire to proceed. After counseling, she again affirms her desire to proceed. Written consent was initial by myself, as we did not complete this previously. - Plan perioperative Ancef with a test dose. She does have a history of rash to amoxicillin, no history of urticaria or anaphylaxis psych response. - blood type O positive - GBS negative - obtain CBC, creatinine, AST and ALT on admission and the setting of recent chronic hypertension exacerbation - active type and screen on file
[2024-10-13 06:50] LABS: Hemoglobin* 12.3 gm/dL (12.0-16.0)
[2024-10-13 07:02] LABS: Hematocrit* 36.5 % (33.0-51.0); Mean Corpuscular HGB Conc 33 gm/dL (32-36); Mean Corpuscular Hemoglobin 29 pg (26-34); Mean Corpuscular Volume 86 fL (80-100); Red Blood Count* 4.25 m/uL (4.00-5.20); White Blood Count* 6.79 K/uL (4.50-11.00)
[2024-10-13 07:05] LABS: Slide Review Reflex No
[2024-10-13 07:06] LABS: Blood Urea Nitrogen* 15 mg/dL (5-24); Creatinine* 0.5 mg/dL (0.5-1.5); Est. Creatinine Clearance* 157.87; Estimated Glomerular Filt Rate 122 ml/min
[2024-10-13 07:07] LABS: Alanine Aminotransferase* 28 U/L (4-35); Aspartate Amino Transferase* 36 U/L (12-35)
--- NOTE | 2024-10-13 08:38 | P.OBPRC_ITS ---
Procedure Date of procedure: 10/13/24 Pre-op diagnosis: Request for C/S due to history of shoulder dystocia, cHTN exacerbation, AMA, undesired fertility Post-op diagnosis: same Procedure Done: Global Will [facility] bill your pro fee for this procedure?: Yes Blood Loss Measurement Type: QBL (6005) Bakri Used: No IV fluids (mL): 1,000 Urine Output (mL): 100 Urine Output Comment: clear, yellow Surgeon: Vince Ferrer MD Anesthesia Type: Spinal Findings: Liveborn male fetus Unremarkable uterus, bilateral fallopian tubes and ovaries Procedure Name: Primary delivery Bilateral salpingectomy Procedure Description: Patient was taken to the operating room with IV running. She received cefazolin in preoperative prophylaxis, no reaction despite history of non-severe penicillin allergy (rash). Spinal anesthesia was administered. Chambers catheter was inserted. She was prepped and draped in the usual sterile fashion. Anesthesia was tested and found to be adequate. A low-transverse skin incision was made with a scalpel and carried through to the underlying layer of fascia with the scalpel. The subcutaneous fat was dissected off the underlying fascia with Bovie and blunt dissection. The fascia was nicked in the midline with a scalpel, and this incision was extended laterally with scissors. The rectus muscles were in the midline. Peritoneum was identified and entered bluntly. Bovie was used to widen this opening laterally. Shaun O retractor was inserted and tightened down, providing excellent visualization of the lower uterine segment. The bladder reflection was found to be well below the planned site for hysterotomy. Low-transverse uterine incision was made with a scalpel. Incision was widened bluntly. The 's head was grasped through the hysterotomy and elevated to the hysterotomy. The remainder of the body delivered without incident with the help of fundal pressure. Body cord noted around trunk and baby's leg, loose and delivered through. Baby was not noted to be vigorous immediately, where stimulation ensued. With stimulation and suctioning, improvement in tone, color and respiratory effort was noted. Cord was clamped and cut after 30 seconds. was handed off to attending nurses. The placenta was delivered with gentle traction on the cord. The uterus was cleaned of all clots and debris with the dry lap pad. Active bleeding was noted, where ring forceps were applied to temporize bleeding. IV pitocin was initiated, 1g IV TXA was requested and administered. The hysterotomy was reapproximated with 0 Vicryl in a running, locked fashion. Second layer of the same suture was used in imbricating fashion to obtain hemostasis. Excellent uterine tone was noted. The adnexa were examined and noted to be normal in appearance. The right fallopian tube and ovary were inspected and found to be unremarkable. The fallopian tube was elevated with two Babc[place], where the right fallopian tube was sequentially ligated and transected from the mesosalpinx using the handheld Harmonic device. Care was made to ligate proximally, then move device distally for a second ligation and ultimately transection cycle at the cornua and where any significant vasculature was visualized in the mesosalpinx. We proceeded from the fimbriated end, lateral to medial, and the tube was amputated at the right uterine cornua. Specimen was removed from the field. Excellent hemostasis noted. Attention was then turned the left, where left fallopian tube was identified and grasped with Babcocks. The same procedure was repeated on the patient's left side, and the left fallopian tube was also amputated at the cornua and removed from the patient's abdomen. Both fallopian tubes were sent for pathologic evaluation. The uterus was reintroduced into the abdominal cavity. The right and left tubal sites were examined, where off tension the right cornua was noted to be b leeding. A figure of eight stitch was applied with 2-0 vicryl, where hemostasis improved but bleeding did persist. A 0 vicryl was requested, where two additional figure of eights were applied where the mesosalpinx met the uterine body and at the tubal cornua itself. Excellent hemostasis noted. Remainder of the tubal site was inspected and noted to be hemostatic. The left side was inspected and noted be hemostatic. Isela was applied at this site. The cul-de-sac and gutters were cleansed with dampened laparotomy sponge, removing any further clots and debris. The Shaun O retractor was removed. The hysterotomy was reexamined and found to be hemostatic. Both tubal sites were thoroughly inspected and noted to be hemostatic. The previously applied Isela at the right cornua was noted to be adherent and dry. Remaining isela was applied at the right cornua and across hysterotomy. The rectus muscles were sequentially elevated, examined and made hemostatic with electrocautery was needed. The fascia was reapproximated with 0 Vicryl in a running fashion. Subcutaneous fat was irrigated and Bovie used on oozing vessels. The subcutaneous fat was reapproximated with 2 0 vicryl suture in a continuous fashion. The skin was closed with a subcuticular stitch of 3-0 monocryl. Surgical glue was applied above this. Patient tolerated procedure well was taken to recovery area in stable condition. Surgical debrief was completed. details: - Liveborn male fetus - weight: Pending at time of documentation - APGARs were 7 and 8 at 1 and 5 minutes respectively - Baby received a few breaths of PPV then CPAP, was on room air by time of my documentation. Later CPAP was resumed. Please see Pediatrics note for details. Pathology: specimen obtained, sent to pathology Surgery Debrief Performed: Yes Condition: stable Disposition: floor
--- NOTE | 2024-10-13 09:09 | W.PM.NB ---
Nerve Block Nerve Block Time Seen by Provider: 08:55 Date Seen: 10/13/24 Type of block requested by surgeon for post-operative analgesia: TAP Side: bilateral Time out performed: Yes Verification of patient name: Yes Verification of date of : Yes Site marking: site marked Name of person performing procedure: kala Continuous monitoring Was continuous monitoring of O2 sat, B/P, insurance customer service specialist, recorded every 15 minutes?: Yes Procedure Checklist: sterile prep, needles and gloves Ultrasound guided. Images saved: Yes Medications given in 5ml increments after negative aspiration: Marcaine %: 0.25 mL: 30 and Exparel mL: 10 Patient tolerated procedure well: Yes Block Charges Block Charge (with Pro Fee): TAP Bilateral Use of Ultrasound Machine for Block: Yes- US Guidance/pain block
--- NOTE | 2024-10-13 09:10 | P.ANES_ITS ---
Anesthesia Charges Start Date/Time Anesthesia Start Date: 10/13/24 Anesthesia Start Time: 07:15 Stop Date/Time Anesthesia Stop Date: 10/13/24 Anesthesia Stop Time: 09:05 Coding CPT Codes CPT Codes: ANESTH CS DELIVERY - 14932 ([id number]) P3 - PATIENT W/SEVERE SYS DISEASE, QZ - SATELLITE SPECIALIST SVC W/O APPLICATIONS PROGRAMMER BY
--- NOTE | 2024-10-13 09:10 | W.ANESCHARGE ---
Anesthesia Charges Start Date/Time Anesthesia Start Date: 10/13/24 Anesthesia Start Time: 07:15 Stop Date/Time Anesthesia Stop Date: 10/13/24 Anesthesia Stop Time: 09:05 Coding CPT Codes CPT Codes: ANESTH CS DELIVERY - 55997 ([id number]) P3 - PATIENT W/SEVERE SYS DISEASE, QZ - FOOD VENDOR SVC W/O CYANIDE POT TENDER BY
[2024-10-13] MEDS: LACTATED RINGERS 1000 ML 1,000 ML 100 ML IV (09:36)
--- NOTE | 2024-10-13 09:38 | SUR.PHASEI ---
Patient comfortable without pain or nausea. Patient meets anesthesia PACU discharge criteria.
[2024-10-13] MEDS: LABETALOL HCL 100 MG TABLET 300 MG PO ×2 (09:56→20:33)
[2024-10-13] MEDS: OXYTOCIN 30 unit/500 ML in NS 30 UNIT/500 ML BAG 125 UNIT IV (10:23)
[2024-10-13] MEDS: miSOPROStoL 800 MCG/4 TABLET PR (10:23)
[2024-10-13 10:57] LABS: Hematocrit* 36.4 % (33.0-51.0); Hemoglobin* 11.9 gm/dL (12.0-16.0); Immature Granulocytes Pct Auto 0.2 %; Mean Corpuscular HGB Conc 33 gm/dL (32-36); Mean Corpuscular Hemoglobin 28 pg (26-34); Mean Corpuscular Volume 86 fL (80-100); RDW Coefficient of Variation % 13.2 % (11.5-15.5); Red Blood Count* 4.23 m/uL (4.00-5.20); White Blood Count* 13.32 K/uL (4.50-11.00)
[2024-10-13 11:26] LABS: Immature Granulocytes Abs Auto 0.00 K/uL (0.00-0.30); Lymphocytes Absolute Auto 0.80 K/uL (0.90-2.90); Slide Review Reflex No
[2024-10-13 11:41] LABS: INR 0.94 (0.91-1.10); Prothrombin Time 13.3 Seconds
[2024-10-13] MEDS: ACETAMINOPHEN 500 MG TABLET 1000 MG PO ×2 (12:08→17:36)
[2024-10-13] MEDS: LACTATED RINGERS 500 ML 500 ML 125 ML IV (14:30)
--- NOTE | 2024-10-13 18:13 | PM.OBPNVD1 ---
OB - PN:Subj Subjective Date Seen: 10/13/24 Narrative: Delay documentation due to patient cares. About an hour after delivery, I was notified bedside nurse of intermittent slight atony of the uterus with a trickle of blood noted. Prior presented to the bedside, patient is noted to be alert and oriented well-appearing. Vital signs reviewed and within normal limits. Patient previously noted the fundus was very firm at 1 below umbilicus, where it is now risen to about umbilicus. With fundal massage, small volume bleeding can be expressed. I affirmed this exam. Her abdomen is overall soft and nondistended. Slight tenderness to palpation in lower quadrants, consistent with postoperative state. No rebound or guarding. Fundus palpates at umbilicus, diminished tone from I left the operating room. Overall, her bleeding is not only slightly more than anticipated. Still, given mild and intermittent in atony in addition to her intraoperative PPH plan to proceed with a 2nd bag of IV Pitocin and proceed with placement of rectal Cytotec 800 mcg. Explained to patient that this will aid in uterine tone, to minimize further bleeding. In addition, plan to obtain CBC and coags given her intraoperative PPH of nearly 1.4 L. All questions answered. Labs returned as follows: Hemoglobin of 11.9, platelets 157, INR 0.9, APTT 24, fibrinogen 454. Update an hour later by bedside RN notes uterine tone continues to be excellent at 1-2 below umbilicus. No ongoing vaginal bleeding noted. OB - PN: Obj Exam Physical Exam: Vital signs: Temp Pulse Resp BP Pulse Ox O2 Del Method 98.2 F 74 24 132/81 98 Room Air 10/13/24 15:40 10/13/24 15:40 10/13/24 15:40 10/13/24 15:40 10/13/24 15:40 10/13/24 15:40 OB - PN: Obj Data Labs Labs: Laboratory Results - last 24 hr 10/13/24 10/13/24 06:35 10:40 WBC 6.79 13.32 H RBC 4.25 4.23 Hgb 12.3 11.9 L Hct 36.5 36.4 MCV 86 86 MCH 29 28 MCHC 33 33 RDW Coeff of Valeria 13.2 Plt Count 154 157 Neut % (Auto) 90.8 H Lymph % (Auto) 5.9 L Randolph % (Auto) 2.6 Eos % (Auto) 0.3 Baso % (Auto) 0.2 Neut # (Auto) 12.10 H Lymph # (Auto) 0.80 L Randolph # (Auto) 0.30 Eos # (Auto) 0.00 Baso # (Auto) 0.00 Abs Immat Gran (auto) 0.00 Imm/Tot Granulo (auto) 0.2 INR 0.94 APTT 24 Fibrinogen 454 H BUN 15 Creatinine 0.5 Estimated Creat Clear 157.87 Estimated GFR 122 AST 36 H ALT 28 Blood Type O Positive Antibody Screen NEGATIVE OB - PN: A/P Delivery Assessment and Plan (1) : Status: Acute (2) Abnormal glucose tolerance test: Status: Acute (3) Chronic hypertension affecting : Problem details: with gestational exacerbation Status: Acute (4) Advanced maternal age in multigravida: Status: Acute (5) History of shoulder dystocia in prior : Status: Acute (6) Depression: Status: Acute (7) History of pre-eclampsia: Status: Acute
[2024-10-13] MEDS: SIMETHICONE 80 MG TAB.CHEW PO (20:32)
[2024-10-14] VITALS (7 sets, daily range): BP systolic 116–136; BP diastolic 71–91; PULSE 80–97; RESP 12–20; TEMP 36.6–36.9; O2SAT 95–98
[2024-10-14] MEDS: SIMETHICONE 80 MG TAB.CHEW PO (01:19)
[2024-10-14] MEDS: ACETAMINOPHEN 500 MG TABLET 1000 MG PO ×3 (01:19→21:33)
[2024-10-14 05:43] LABS: Hemoglobin* 10.2 gm/dL (12.0-16.0)
[2024-10-14] MEDS: LABETALOL HCL 100 MG TABLET 300 MG PO ×2 (08:27→21:33)
[2024-10-14] MEDS: DOCUSATE SODIUM 100 MG CAPSULE PO (08:27)
--- NOTE | 2024-10-14 09:11 | P.OBPN_ITS ---
OB - PN:Subj Subjective Time Seen by Provider: 08:15 Date Seen: 10/14/24 Patient comments OB post-: pain well controlled, tolerating diet and flatus present status: bottle [place] feeding status: exclusively bottle feeding OB - PN: Obj Exam Physical Exam: Vital signs: Temp Pulse Resp BP Pulse Ox O2 Del Method 97.8 F 80 20 131/83 98 Room Air 10/14/24 08:32 10/14/24 08:32 10/14/24 08:32 10/14/24 08:37 10/14/24 08:32 10/14/24 08:32 Narrative: General: Pleasant, , well groomed woman in no acute distress. Vital signs: Included in her electronic medical record. Heart: Regular rate and rhythm without gallop, rub or murmur. Chest: Clear to auscultation bilaterally. Abdomen: Soft, nontender and nondistended with normal bowel sounds throughout. No CVA or flank tenderness. Fundus is firm at 2 cm below umbilicus in the midline. Incision(s): Clean, dry and intact with subcutaneous Extremities: No pain or edema. OB - PN: Obj Data Labs Labs: Laboratory Results - last 24 hr 10/13/24 10/14/24 10:40 05:09 WBC 13.32 H RBC 4.23 Hgb 11.9 L 10.2 L Hct 36.4 MCV 86 MCH 28 MCHC 33 RDW Coeff of Valeria 13.2 Plt Count 157 Neut % (Auto) 90.8 H Lymph % (Auto) 5.9 L [place] % (Auto) 2.6 Eos % (Auto) 0.3 Baso % (Auto) 0.2 Neut # (Auto) 12.10 H Lymph # (Auto) 0.80 L [place] # (Auto) 0.30 Eos # (Auto) 0.00 Baso # (Auto) 0.00 Abs Immat Gran (auto) 0.00 Imm/Tot Granulo (auto) 0.2 INR 0.94 APTT 24 Fibrinogen 454 H OB - PN: A/P Delivery Assessment and Plan (1) Status post primary low transverse section: Status: Acute Plan 1. Continue postop and care. 2. The patient is planning to continue bottle feeding exclusively. 3. Her postoperative hemoglobin was 10.2 so does not require iron supplements. 4. Continue labetalol 300 mg twice daily. Will continue to monitor her blood pressure closely and increased frequency of labetalol if 25% or more of her blood pressures are greater than or equal to 140/90.
[2024-10-14] MEDS: IBUPROFEN 600 MG TABLET PO (21:34)
[2024-10-15 01:56] VITALS: BP 128/75; PULSE 94; RESP 16; TEMP 36.6; O2SAT 94
[2024-10-15 05:20] VITALS: BP 144/81; PULSE 90; RESP 20; TEMP 36.6; O2SAT 98
--- NOTE | 2024-10-15 08:16 | P.DS_ITS ---
DS: Providers Provider Date Seen: 10/15/24 Date of admission: 10/13/24 05:52 Primary care physician: Not a Local Provider Admitting Clinician: Tonya Staples MD Attending Physician on discharge: Nati Ivey CNM DS: Diagnosis Discharge Diagnosis (1) Status post primary low transverse section: Status: Acute (2) Chronic hypertension affecting : Status: Acute Problem details: with gestational exacerbation (3) Lactating mother: Status: Acute (4) care and examination immediately after delivery: Status: Acute (5) Anxiety: Status: Acute (6) Depression: Status: Acute Exam Narrative: Exam Narrative: GENERAL APPEARANCE:? normal affect, alert, no distress MOOD:? appropriate CHEST:? clear to auscultation HEART:? regular rate and rhythm ABDOMEN:? soft, non-tender the uterine fundus is 1 below At Umbilicus, Midline and is appropriate for the stage of recovery. EXTREMITIES:? normal and trace edema INCISION: Healing well, no surrounding erythema, abnormal induration or discharge. Mild bruising present around incision. Const: Vital Signs, click to edit/add: Vital Signs - 24 hr 10/14/24 08:32 10/14/24 08:37 10/14/24 13:34 Temperature 97.8 F 98.4 F Pulse Rate [Left P ulse Oximeter] 80 89 Respiratory Rate 20 12 Blood Pressure [Ri ght Arm] 136/91 H 131/83 125/79 Pulse Oximetry 98 97 Oxygen Delivery Me thod Room Air Room Air 10/14/24 16:46 10/14/24 21:36 10/15/24 01:56 Temperature 98.2 F 98.1 F 98 F Pulse Rate [Left P ulse Oximeter] 97 88 94 Respiratory Rate 20 18 16 Blood Pressure [Ri ght Arm] 116/71 131/82 128/75 Pulse Oximetry 97 95 94 Oxygen Delivery Me thod Room Air Room Air Room Air 10/15/24 05:20 Temperature 98 F Pulse Rate [Left P ulse Oximeter] 90 Respiratory Rate 20 Blood Pressure [Ri ght Arm] 144/81 H Pulse Oximetry 98 Oxygen Delivery Me thod Room Air Documenting provider has reviewed patient's vital signs: yes OB - DS: Summary Hospital Course Hospital Course: Janice is a 38 y.o. G 2 P 2 who was admitted to [facility] for repeat c/s. ?She had a section that was complicated by PPH of 1378 ml. The patient feels well. ?The pain is well controlled with current medications. ?She has no new complaints. ?She is breast feeding and reports things are going well. the patient has done well.? Vitals have been stable.? She has remained afebrile.? Has a good appetite, is tolerating a general diet. ?She is voiding without difficulty.? She is passing gas and has had a small bowel movement.? She is ambulating and denies any dizziness.? Has small amount of rubra lochia. She had a bilateral salpingectomy for prevention. Problems: Chronic HTN Discharge home with baby.? Follow up in 2 weeks and 6 weeks.? , may see if needed? Hgb 10.2. ? Chronic HTN? Labs WNL Monitor BP BID Follow up in 3-5 days? Call for signs/symptoms of preeclampsia? For pain control of perineum, breast and pelvic pain, take 600 mg Ibuprofen every 6 hours as needed by mouth or 1000 mg acetaminophen (Tylenol) every 6 hours by mouth as needed. You can alternate these so you are taking something every 3 hours as needed. A heating pad can also be used for your abdomen or breasts. You may also take docusate sodium up to twice daily to soften your stools and help to prevent constipation. You may wean off of it when your stools return to normal.? Peripartum Data delivery method: Repeat Section Procedures: Procedures Operation Date: 10/13/24 07:15 Actual Procedure Side Surgeon p PRIMARY Section WITH BILATERAL SALPINGECTOMIES Bilateral Laurie Ferrer MD Procedures: tubal ligation/salpingectomy complications: none Gender: Male Discharge Plan: Home Status at Discharge Functional status at discharge: independent ambulation Overall status at discharge: patient is progressing back to baseline Time Spent with Patient Time attestation: Total time spent providing and/or coordinating discharge services: Time spent: Less than 30 minutes Discharge Plan Discharge Disposition: Home w/ Parent or Adult Date of Admission: 10/13/24 05:52 Attending Provider on Discharge: Nati Ivey Primary Care Provider: Provider,Not a Local Anticipated Discharge Date/Time: 10/15/24 12:00 Discharge Medications: New ibuprofen 600 mg Tablet 600 mg PO Q6H PRN (Reason: Pain) Qty: 60 0RF labetalol 100 mg tablet 100 mg PO BID Qty: 60 1RF Rx Instructions: Take with Labetalol 200 mg tab for a total of 300 mg labetalol 200 mg tablet 200 mg PO BID Qty: 60 1RF Rx Instructions: Take with Labetalol 100 mg tab for total of 300 mg. docusate sodium 100 mg Capsule 100 mg PO DAILY Qty: 60 0RF acetaminophen 500 mg Tablet 1,000 mg PO Q6H PRN (Reason: Pain) Qty: 0 0RF Continued DHA 200 mg capsule 200 mg PO DAILY sertraline [Zoloft] 100 mg tablet 200 mg PO QDAY fluticasone propionate [Flonase Allergy Relief] 50 mcg/actuation spray,suspension 1 spray intranasal BID Qty: 16 0RF Rx Instructions: administer into each nostril metronidazole 1 % gel 1 applic topical QHS Qty: 60 0RF Discontinued aspirin 81 mg tablet,chewable 81 mg PO QDAY labetalol 100 mg tablet 300 mg PO BID Discharge Orders: Discharge Order (Routine); Ordered 10/15/24 Ordered By: Nati Ivey Patient Education: OB Over the Counter Medication Information, OB /Breast Feeding Additional Instructions: Discharge instructions were reviewed with the patient including signs and symptoms of infection and home going medications Lifting Restrictions: 20 pounds for 6 weeks No not submerge incision under water X 2 weeks? Nothing vaginally for 6 weeks: no tampons or intercourse Do not drive while taking narcotic pain medication(s) Off Work or School for 8 weeks [facility] for [facility] BP check?3-5 days Call with: * BP greater than or equal to 160/110 * Severe headache that doesn't improve after taking medications * Changes in vision, including temporary loss of vision, blurred vision, and/or light sensitivity * Upper abdominal pain (usually under ribs on the right side) 2-week visit: incision check, discuss feeding concerns, review control options and screen for anxiety/depression. 6-week visit for an annual exam. consultation services are available to all mothers and babies for the first year after delivery.? To make an appointment, please call [phone]. Activity Level: Activity as Tolerated and No strenuous activity Discharge Diet: Regular Follow Up Appointments: [facility] [Provider Group] Forms: MyHealth Info Instructions
[2024-10-15] MEDS: LABETALOL HCL 100 MG TABLET 300 MG PO (08:38)
[2024-10-15] MEDS: DOCUSATE SODIUM 100 MG CAPSULE PO (08:38)
[2024-10-15] MEDS: ACETAMINOPHEN 500 MG TABLET 1000 MG PO (08:42)
[2024-10-15] MEDS: IBUPROFEN 600 MG TABLET PO (08:42)
[2024-10-15 08:46] VITALS: BP 130/78; PULSE 103; RESP 17; TEMP 36.6; O2SAT 96
== END 2024-10-15 11:50 | disposition home or self-care (01) | DRG 785 ==
PROVIDERS: Admitting Provider Obstetrics & Gynecology; Visit Provider Obstetrics & Gynecology
PROC: 10D00Z1 Extraction of Products of Conception, Low, Open Approach (ICD-10-PCS; CPT 59514; principal; 2024-10-13 07:15)
DX: O16.4 Unspecified maternal hypertension, complicating childbirth (principal); G89.18 Other acute postprocedural pain; O99.814 Abnormal glucose complicating childbirth; O99.344 Other mental disorders complicating childbirth; F32.A Depression, unspecified; F41.9 Anxiety disorder, unspecified; Z30.2 Encounter for sterilization; Z37.0 Single live birth; Z3A.37 37 weeks gestation of pregnancy
CPT/HCPCS: 01961; 36415; 64488; 76942; 82565; 84450; 84460; 84520; 85018; 85025; 85027; 85384; 85610; 85730; 86592; 86850; 86900; 86901; 88302; 88307; A4314; A9270; J0665; J0666; J1100; J1885; J2371; J2405; J2590; J7120